=== PATIENT | female | born 1955 | race Caucasian/White ===

== ENCOUNTER 2017-05-07 09:54 | Emergency (ER) | payer MEDICARE ==
[2017-05-07] MEDS ORDERED: LORazepam 2 MG/ML DISP.SYRIN IV ONE (10:08)
[2017-05-07] MEDS ORDERED: MORPHINE SULFATE 2 MG/ML DISP.SYRIN IV ONE ×2 (10:09→11:37)
[2017-05-07 10:19] LABS: Hematocrit 41.4 % (37.0-47.0); Hemoglobin 13.8 gm/dL (12.5-16.0); Mean Cell Volume 83.6 fl (78-100); Mean Corpuscular Hemoglobin 27.9 pg (27-31); Mean Corpuscular Hgb Conc 33.3 g/dl (32-36); Mean Platelet Volume 9.2 fl (6.0-9.5); Neutrophil # 3.7 K/mm3 (1.3-6.0); Neutrophil % 54.7 % (42-75.0); Platelet Count 241 K/mm3 (150-450); Red Blood Count 4.95 M/mm3 (4.2-5.4); Red Cell Distribution Width 14.6 % (11.5-14.0); White Blood Count 6.7 K/mm3 (4.0-10.5)
[2017-05-07] MEDS ORDERED: LORazepam 2 MG/ML DISP.SYRIN ONE (10:21)
[2017-05-07] MEDS ORDERED: ONDANSETRON HCL/PF 2 MG/ML VIAL ONE (10:21)
[2017-05-07] MEDS ORDERED: MORPHINE SULFATE 2 MG/ML DISP.SYRIN ONE ×2 (10:21→11:35)
[2017-05-07] MEDS ORDERED: ONDANSETRON HCL/PF 2 MG/ML VIAL IV ONE (10:22)
[2017-05-07 10:29] LABS: Prothrombin Time (Patient) 10.3 Seconds (9.4-11.4)
[2017-05-07 10:37] LABS: Albumin * 3.1 gm/dl (3.4-5.0); Anion Gap 12.2 mmol/L (6.8-13.8); BUN/Creatinine Ratio 12.8 (9.0-21.6); Bilirubin, Total 0.6 mg/dL (0.0-1.1); Calcium * 8.6 mg/dL (7.9-10.9); Carbon Dioxide 23.8 mmol/L (24-32.6); Total Protein 6.9 gm/dL (6.2-8.2); Troponin I 0.027 ng/ml (0.00-0.10)
[2017-05-07 10:41] LABS: INR 0.99 INR (0.90-1.10); Partial Thrombolplastin Time 21.7 Seconds (24-32)
[2017-05-07] MEDS ORDERED: NITROGLYCERIN 0.4 MG/TAB BTL SL ONE (11:23)
[2017-05-07 13:40] VITALS: BP 170/92
--- NOTE | 2017-05-07 13:49 | ERNOTE ---
Chest Pain/Cardiac HPI Date of Service: 05/07/17 Chief Complaint: Chest Pain Time Seen by Provider: 05/07/17 10:02 Source: patient, family Exam Limitations: no limitations Immunizations: IMMUNIZATION HX Immunizations Up to Date Yes History of Influenza Vaccine No Hx Pneumococcal Vaccination No Allergies/Adverse Reactions: Allergies aspirin Allergy (Severe, Verified 05/07/17 10:10) Shortness of Breath cephalexin monohydrate [From Keflex] Allergy (Verified 05/07/17 10:10) codeine Allergy (Verified 05/07/17 10:10) Penicillins Allergy (Verified 05/07/17 10:10) prednisone Allergy (Verified 05/07/17 10:10) Home Medications: HOME MEDICATIONS Levothyroxine Sodium [Synthroid] 150 mcg PO DAILY@0700 #30 tablet 04/13/16 [ Last Taken Unknown] LORazepam [Ativan] 1 mg PO TID PRN #20 tab 09/01/16 [Last Taken Unknown] HYDROcodone/ACETAMINOPHEN [[place] 5-325] 1 tab PO Q4H PRN #40 tab 05/07/17 [Last Taken Unknown] Metoprolol Succinate 25 mg PO HS 05/07/17 [Last Taken Unknown] Narrative: patient had acute onset of sharp chest pain with radiation into left shoulder, recent episode of pericarditis Timing: constant, getting worse Severity/Quality: severe, sharp, stabbing Location: substernal, shoulder Chest Pain Radiation: shoulders Activities at Onset: none Modifying Factors - Improves: Present: nothing Modifying Factors - Worsens: Present: nothing Nitro Today/Relief: no nitro taken today Associated Symptoms: Present: denies symptoms Prior Chest Pain/Cardiac Workup: Reports: prior chest pain Prior Treatment: Reports: recently seen, treated by physician, recently hospitalized Review of Systems - Review of Systems Constitutional: Present: See HPI EYE: Present: no symptoms reported ENT: Present: no symptoms reported Respiratory: Present: no symptoms reported Cardiology: Present: See HPI, chest pain Gastrointestinal/Abdominal: Present: no symptoms reported Genitourinary: Present: no symptoms reported Musculoskeletal: Present: See HPI, other - pain to palpatioin left anterior chest wall Skin: Present: no symptoms reported Neurological: Present: no symptoms reported, seizure, weakness Endocrine: Present: no symptoms reported Hematologic/Lymphatic: Present: no symptoms reported Psych: Present: no symptoms reported All Other Systems: All systems neg except as marked - Patient's Past Medical History Patient History - Medical: Anxiety, GERD, Headache, Hypothyroidism, Renal Disease, Rheumatoid Arthritis, Other Patient History - Cardiac/Respiratory: Hypertension, Pericarditis Patient History - Cancer: No Hx of Cancer Patient History - Surgical Procedures: Back Surgery, Hysterectomy, Other Patient History - Other: None - Family History Family History:: no untoward family reactions to anesthesia, no familial bleeding tendencies, no family history of premature - Family History Mother Family History - Medical: , Renal Disease Family History - Cardiac/Respiratory: No pertinent hx Family History - Cancer: No pertinent family hx Father Family History - Medical: , Other Family History - Cardiac/Respiratory: Myocardial Infarction, Pneumonia - Social History Living Situations: spouse Abuse History: No History of abuse Psych History: No pertinent hx Smoking Status: Never smoker Have you smoked in the past 12 months: No Do you dip or chew tobacco: No Patient requests Smoking Cessation Consult: No Alcohol Use: none Drug Use: none - Immunizations Immunizations Up to Date: Yes Hx Pneumococcal Vaccination: No History of Influenza Vaccine: No Physical Exam - Physical Exam General Appearance: Present: alert, moderate distress Head Exam: Present: normal inspection, no evidence of injury Eye Exam: Normal inspection: bilateral, PERRL: bilateral, EOMI: bilateral Ears, Nose, Throat: Present: normal ENT inspection Neck: Present: normal inspection, nontender Respiratory: Present: no respiratory distress, normal breath sounds, no accessory muscle use, chest nontender, lungs clear Cardiovascular/Chest: Present: no murmur, normal peripheral pulses Peripheral Pulses: N=norm/S=strong/W=weak/B=bound/A=absent: Carotid (R): Normal , Carotid (L): Normal, Radial (R): Normal, Radial (L): Normal, Femoral (R): Normal, Femoral (L): Normal, Dorsalis-pedis (R): Normal, Dorsalis-pedis (L): Normal Gastrointestinal/Abdominal: Present: normal bowel sounds, nontender, nondistended, soft, no organomegaly Back Exam: Present: normal inspection, normal range of motion, no CVA tenderness , no vertebral tenderness Extremity Exam: Present: normal inspection, non-tender, normal range of motion, no edema Neurological Exam: Present: alert, oriented, normal mood/affect, no motor/ sensory deficits DTR: N=norm/NB=norm/brisk/A=abs/DD=dull/dimin/HC=hyperactive: Bicep (R): Normal , Bicep (L): Normal, Tricep (R): Normal, Tricep (L): Normal, Knee (R): Normal, Knee (L): Normal, Ankle (R): Normal, Ankle (L): Normal Skin Exam: Present: normal color, warm/dry Lymphatic Exam: Present: no adenopathy ED Progress - Results and Orders Patient's Lab Results:: I have reviewed the patient's lab results. - Vital Signs Patient's Vital Signs:: I have reviewed the patient's vital signs. Vital Signs: Vital Signs 05/07/17 05/07/17 05/07/17 10:01 10:03 10:15 Temperature 36.2 C L Pulse Rate 96 98 124 H Respiratory 18 23 H Rate Blood Pressure 159/88 169/76 O2 Sat by Pulse 94 90 Oximetry 05/07/17 05/07/17 05/07/17 10:31 10:40 11:28 Temperature Pulse Rate 103 H 84 79 Respiratory 18 13 16 Rate Blood Pressure 141/84 145/79 153/84 O2 Sat by Pulse 91 91 97 Oximetry 05/07/17 05/07/17 05/07/17 11:31 11:42 12:16 Temperature Pulse Rate 83 78 92 Respiratory 19 16 12 Rate Blood Pressure 137/79 143/95 148/90 O2 Sat by Pulse 97 96 97 Oximetry 05/07/17 05/07/17 12:47 13:12 Temperature Pulse Rate 93 74 Respiratory 14 16 Rate Blood Pressure 148/90 165/91 O2 Sat by Pulse 95 95 Oximetry - EKG EKG: NSR, no ST T wave changes - Progress/Reassessment Chief Complaint: Chest Pain Progress:: Pain free at discharge - Transfer of Care Expected Disposition: Discharge Departure - Departure Clinical Impression: Chest wall pain Condition: Fair Instructions: Chest Wall Pain, [id number] Referrals: Nette Vale CNP [Primary Care Provider] - Prescriptions: HYDROcodone/ACETAMINOPHEN [[place] 5-325] 1 tab PO Q4H PRN #40 tab PRN Reason: Pain
== END 2017-05-07 13:52 | disposition home or self-care (01) ==
LOC: ER 09:54
DX: R07.89 Other chest pain (principal)
CPT/HCPCS: 36415; 71020; 71275; 80053; 83880; 84484; 85025; 85379; 85610; 85730; 93005; 96374; 96375; 99285; J2405

== ENCOUNTER 2017-05-08 12:40 | Emergency (ER) | payer MEDICARE ==
[2017-05-08] MEDS ORDERED: KETOROLAC TROMETHAMINE 30 MG/ML VIAL IV ONE (13:00)
[2017-05-08 13:01] VITALS: BP 145/84
[2017-05-08] MEDS ORDERED: LORazepam 2 MG/ML DISP.SYRIN IV ONE (13:02)
--- NOTE | 2017-05-08 13:04 | ERNOTE ---
Chest Pain/Cardiac HPI Date of Service: 05/08/17 Chief Complaint: Chest Pain Time Seen by Provider: 05/08/17 12:52 Source: patient, RN notes reviewed, past records Exam Limitations: other - Poor historian Immunizations: IMMUNIZATION HX Immunizations Up to Date Yes History of Influenza Vaccine Yes Hx Pneumococcal Vaccination Yes Allergies/Adverse Reactions: Allergies aspirin Allergy (Severe, Verified 05/08/17 12:49) Shortness of Breath cephalexin monohydrate [From Keflex] Allergy (Verified 05/08/17 12:49) codeine Allergy (Verified 05/08/17 12:49) methotrexate Allergy (Verified 05/08/17 12:50) Penicillins Allergy (Verified 05/08/17 12:49) prednisone Allergy (Verified 05/08/17 12:49) leflunomide Adverse Reaction (Verified 05/08/17 12:50) Home Medications: HOME MEDICATIONS Levothyroxine Sodium [Synthroid] 150 mcg PO DAILY@0700 #30 tablet 04/13/16 [ Last Taken Unknown] LORazepam [Ativan] 1 mg PO TID PRN #20 tab 09/01/16 [Last Taken Unknown] Colchicine 0.6 mg PO DAILY 05/08/17 [Last Taken Unknown] Furosemide [Lasix] 20 mg PO DAILY 05/08/17 [Last Taken Unknown] Indomethacin [Indocin] 25 mg PO BID 05/08/17 [Last Taken Unknown] Leflunomide 20 mg PO DAILY 05/08/17 [Last Taken Unknown] Naproxen 500 mg PO BID 05/08/17 [Last Taken Unknown] Potassium Chloride 10 meq PO DAILY 05/08/17 [Last Taken Unknown] Narrative: 61 y/o female brought to the ED by ambulance for chest pain. She was seen for this yesterday. Her work-up, including a CTA chest, was unremarkable for any causative etiology. She has continued to have pain since. She was at her PCP's office this morning when she complained of chest pain and collapsed in a chair. She then became unconscious for about 30 seconds. 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 She is rather displeased that she was brought here and is under the impression that she will be transferred once she can be considered stable. She reports being concerned today because the pain was radiating into her left arm, however on review of her chart from yesterday, it appears as though this was happening then as well. She also reports that she has been taking the pain medication that was prescribed for her yesterday but the prescription is in her hand. She reports that these are the same symptoms that she was having when she was diagnosed with the pericardial effusion. Timing: constant - for over 24 hours Severity/Quality: moderate Location: left chest Chest Pain Radiation: arms - left Nitro Today/Relief: 0.4 mg x 2, mild relief Aspirin Treatment Today: unknown Prior Chest Pain/Cardiac Workup: Reports: prior chest pain. Denies: heart attack Prior Treatment: Reports: recently seen, treated by physician, recently hospitalized Review of Systems - Review of Systems Constitutional: Present: fatigue, malaise. Absent: fever, chills EYE: Present: no symptoms reported ENT: Absent: nose congestion, sore throat Respiratory: Absent: shortness of breath, cough, wheezing Cardiology: Present: chest pain. Absent: palpitations, edema Gastrointestinal/Abdominal: Present: nausea. Absent: vomiting, abdominal pain Genitourinary: Present: no symptoms reported Musculoskeletal: Present: muscle pain, joint pain Skin: Absent: rash, lesions Neurological: Absent: headache, dizziness/light-headedness Endocrine: Present: no symptoms reported Hematologic/Lymphatic: Absent: easy bruising, easy bleeding Psych: Present: anxiety - Patient's Past Medical History Patient History - Medical: Anxiety, GERD, Headache, Hypothyroidism, Renal Disease, Rheumatoid Arthritis, Other Patient History - Cardiac/Respiratory: Hypertension, Pericarditis Patient History - Cancer: No Hx of Cancer Patient History - Surgical Procedures: Back Surgery, Hysterectomy, Other Patient History - Other: None LMP (females 10-50): Menopausal - Family History Mother Family History - Medical: , Renal Disease Family History - Cardiac/Respiratory: No pertinent hx Family History - Cancer: No pertinent family hx Father Family History - Medical: , Other Family History - Cardiac/Respiratory: Myocardial Infarction, Pneumonia - Social History Living Situations: home Abuse History: No History of abuse Psych History: No pertinent hx Smoking Status: Never smoker Alcohol Use: none Drug Use: none - Immunizations Immunizations Up to Date: Yes Hx Pneumococcal Vaccination: Yes History of Influenza Vaccine: Yes Physical Exam - Physical Exam General Appearance: Present: alert, mild distress, anxious, obese Head Exam: Present: normal inspection Eye Exam: Normal inspection: bilateral Neck: Present: normal inspection, nontender, supple Respiratory: Present: no respiratory distress, normal breath sounds, no accessory muscle use, lungs clear, chest tenderness - Left chest Cardiovascular/Chest: Present: no murmur, normal peripheral pulses, tachycardia Gastrointestinal/Abdominal: Present: nontender, nondistended, soft Extremity Exam: Present: normal inspection, no edema Neurological Exam: Present: alert, oriented, no motor/sensory deficits. Absent : normal mood/affect Skin Exam: Present: normal color, warm/dry Lymphatic Exam: Present: no adenopathy ED Progress - Results and Orders Patient's Lab Results:: I have reviewed the patient's lab results. - Vital Signs Patient's Vital Signs:: I have reviewed the patient's vital signs. Vital Signs: Vital Signs 05/08/17 05/08/17 12:42 12:55 Temperature 36.7 C 36.7 C Pulse Rate 114 H 118 H Respiratory 16 14 Rate Blood Pressure 134/98 145/84 O2 Sat by Pulse 96 97 Oximetry - EKG EKG: unchanged from - 05/07/2017, other - Sinus tachycardia EKG read: Reviewed by me - Progress/Reassessment Chief Complaint: Chest Pain Progress:: Unchanged Plan - Plan Plan: Toradol and Ativan were initially given. Patient reports that her pain did not improve, but she did appear more calm. Her work-up today is again negative for any acute cardiac findings. Her EKG shows no significant change and her troponin is negative. Her chest pain is reproducible with palpation and with coughing/moving/ breathing. She remains convinced that her pain is again d/t a pericardial effusion. She has been in stable condition throghout her stay. Discussed with patient the lack of findings indicative of her having an acute cardiac event but she remains adamant that something is wrong and wants to be transferred to [facility] where she received her care when she had the pericardial effusion in January. Transfer arrangements made. Patient accepted for transfer through the ED at [facility] by Dr. Carver, ER triage. To go by ambulance as she is afraid to go by private vehicle in case her symptoms worsen again. Departure - Departure Clinical Impression: Syncope and collapse Chest pain Qualifiers: Chest pain type: unspecified Qualified Code(s): R07.9 - Chest pain, unspecified Disposition: [facility] Condition: Stable
[2017-05-08] MEDS ORDERED: KETOROLAC TROMETHAMINE 30 MG/ML VIAL ONE (13:10)
[2017-05-08] MEDS ORDERED: LORazepam 2 MG/ML DISP.SYRIN ONE (13:11)
[2017-05-08 13:16] LABS: Hematocrit 44.2 % (37.0-47.0); Hemoglobin 14.4 gm/dL (12.5-16.0); Mean Cell Volume 84.7 fl (78-100); Mean Corpuscular Hemoglobin 27.6 pg (27-31); Mean Corpuscular Hgb Conc 32.6 g/dl (32-36); Mean Platelet Volume 9.4 fl (6.0-9.5); Neutrophil # 3.6 K/mm3 (1.3-6.0); Neutrophil % 54.8 % (42-75.0); Platelet Count 222 K/mm3 (150-450); Red Blood Count 5.22 M/mm3 (4.2-5.4); Red Cell Distribution Width 14.8 % (11.5-14.0); White Blood Count 6.6 K/mm3 (4.0-10.5)
[2017-05-08 13:45] LABS: Urine Bilirubin Negative (NEGATIVE); Urine Blood Negative /ul (NEGATIVE); Urine Ketone Negative (NEGATIVE); Urine Nitrite Negative (NEGATIVE); Urine Protein Negative (NEGATIVE); Urine Specific Gravity <=1.005 SP.GR. (1.005-1.010); Urine Urobilinogen Normal (NORMAL); Urine pH 6.5 pH (5.0-7.0)
[2017-05-08 13:49] LABS: Urine Appearance Slightly Cloudy; Urine Color Yellow
[2017-05-08 13:52] LABS: Urine Bacteria 1+; Urine RBC None Seen /hpf (0-5); Urine WBC 0-5 /hpf (0-5)
[2017-05-08 13:54] LABS: ALT 39 U/L (19-67); AST 28 U/L (0-48); Alkaline Phosphatase * 149 U/L (50-170); Anion Gap 13.8 mmol/L (6.8-13.8); BUN/Creatinine Ratio 11.4 (9.0-21.6); Bilirubin, Total 0.6 mg/dL (0.0-1.1); Blood Urea Nitrogen 8 mg/dL (3-23); Ca. Corrected For Albumin 9.4 mg/dL (8.4-10.2); Calcium * 8.9 mg/dL (7.9-10.9); Carbon Dioxide 24.4 mmol/L (24-32.6); Chloride 104 mmol/L (97-106); Glucose * 124 mg/dL (70-110); Potassium 4.2 mmol/L (3.4-4.6); Sodium 138 mmol/L (132-142); TSH * 0.083 uIU/mL (0.358-3.74); Total Protein 7.1 gm/dL (6.2-8.2); Troponin I Less than 0.017 ng/ml (0.00-0.10)
[2017-05-08] MEDS ORDERED: ONDANSETRON HCL/PF 2 MG/ML VIAL IV ONE (14:52)
[2017-05-08] MEDS ORDERED: HYDROmorphone HCL 1 MG/ML DISP.SYRIN IV ONE (14:52)
[2017-05-08] MEDS ORDERED: ONDANSETRON HCL/PF 2 MG/ML VIAL ONE (15:04)
[2017-05-08] MEDS ORDERED: HYDROmorphone HCL 1 MG/ML DISP.SYRIN ONE (15:04)
== END 2017-05-08 15:20 | disposition short-term general hospital (02) ==
LOC: ER 12:40
DX: R07.9 Chest pain, unspecified (principal); R55 Syncope and collapse; R53.83 Other fatigue
CPT/HCPCS: 36415; 80053; 81001; 84443; 84484; 85025; 87077; 87086; 87186; 93005; 96374; 96375; 99284; J2405

== ENCOUNTER 2017-05-10 11:24 | Observation (INO) | payer MEDICARE ==
[2017-05-10] MEDS ORDERED: ONDANSETRON HCL/PF 2 MG/ML VIAL ONE (11:43)
[2017-05-10] MEDS ORDERED: ONDANSETRON HCL/PF 2 MG/ML VIAL IV ONE (11:49)
[2017-05-10 12:11] LABS: Hemoglobin 13.9 gm/dL (12.5-16.0); Mean Cell Volume 83.2 fl (78-100); Mean Corpuscular Hemoglobin 27.5 pg (27-31); Mean Corpuscular Hgb Conc 33.1 g/dl (32-36); Mean Platelet Volume 9.4 fl (6.0-9.5); Neutrophil # 3.3 K/mm3 (1.3-6.0); Neutrophil % 57.2 % (42-75.0); Platelet Count 228 K/mm3 (150-450); Red Blood Count 5.05 M/mm3 (4.2-5.4); Red Cell Distribution Width 14.6 % (11.5-14.0); White Blood Count 5.7 K/mm3 (4.0-10.5)
[2017-05-10 12:29] LABS: ALT 40 U/L (19-67); AST 27 U/L (0-48); Albumin * 3.2 gm/dl (3.4-5.0); Alkaline Phosphatase * 137 U/L (50-170); Anion Gap 15.6 mmol/L (6.8-13.8); Bilirubin, Total 0.5 mg/dL (0.0-1.1); Blood Urea Nitrogen 12 mg/dL (3-23); Calcium * 8.7 mg/dL (7.9-10.9); Carbon Dioxide 24.2 mmol/L (24-32.6); Chloride 105 mmol/L (97-106); Glucose * 158 mg/dL (70-110); Potassium 3.8 mmol/L (3.4-4.6); Sodium 141 mmol/L (132-142); Total Protein 7.1 gm/dL (6.2-8.2); Troponin I Less than 0.017 ng/ml (0.00-0.10)
--- NOTE | 2017-05-10 12:37 | ERNOTE ---
Trauma/Assault HPI - General Stated Complaint: SICK Time Seen by Provider: 05/10/17 11:34 Source: patient, family, EMS - Immun/Allergies/Home Medications Immunizations: IMMUNIZATION HX Immunizations Up to Date Yes History of Influenza Vaccine Yes Hx Pneumococcal Vaccination No Allergies/Adverse Reactions: Allergies aspirin Allergy (Severe, Verified 05/10/17 11:32) Shortness of Breath cephalexin monohydrate [From Keflex] Allergy (Verified 05/10/17 11:32) codeine Allergy (Verified 05/10/17 11:32) methotrexate Allergy (Verified 05/10/17 11:32) Penicillins Allergy (Verified 05/10/17 11:32) prednisone Allergy (Verified 05/10/17 11:32) leflunomide Adverse Reaction (Verified 05/10/17 11:32) Home Medications: HOME MEDICATIONS Levothyroxine Sodium [Synthroid] 150 mcg PO DAILY@0700 #30 tablet 04/13/16 [ Last Taken Unknown] LORazepam [Ativan] 1 mg PO TID PRN #20 tab 09/01/16 [Last Taken Unknown] Colchicine 0.6 mg PO DAILY 05/08/17 [Last Taken Unknown] Furosemide [Lasix] 20 mg PO DAILY 05/08/17 [Last Taken Unknown] Indomethacin [Indocin] 25 mg PO BID 05/08/17 [Last Taken Unknown] Leflunomide 20 mg PO DAILY 05/08/17 [Last Taken Unknown] Naproxen 500 mg PO BID 05/08/17 [Last Taken Unknown] Potassium Chloride 10 meq PO DAILY 05/08/17 [Last Taken Unknown] - History of Present Illness Narrative: Patient presents with a recurrent syncopal episode. Patient was seen here yesterday for something similar was evaluated and sent to [facility] where she was told there that this was not cardiac in nature there was a costochondritis and sent her home. They however did not address the syncope they will be more concerned with was of the chest pain she was having was cardiac or not. Patient states that this time she fell and hit her head, does not remember exactly what happened. Location Occurred: Reports: home Pain Location: Reports: head Method of Injury: Reports: other - syncope Loss of Consciousness: Reports: brief (seconds) Associated Symptoms - Trauma: Reports: nausea, vomiting Review of Systems - Review of Systems Constitutional: Present: See HPI EYE: Present: no symptoms reported ENT: Present: no symptoms reported Respiratory: Present: no symptoms reported Cardiology: Present: no symptoms reported Gastrointestinal/Abdominal: Present: nausea, vomiting Genitourinary: Present: no symptoms reported Musculoskeletal: Present: no symptoms reported Skin: Present: no symptoms reported Neurological: Present: See HPI, headache Endocrine: Present: no symptoms reported Hematologic/Lymphatic: Present: no symptoms reported Psych: Present: no symptoms reported - Patient's Past Medical History Patient History - Medical: Anxiety, GERD, Headache, Hypothyroidism, Renal Disease, Rheumatoid Arthritis, Other Patient History - Cardiac/Respiratory: Hypertension, Pericarditis Patient History - Cancer: No Hx of Cancer Patient History - Surgical Procedures: Back Surgery, Hysterectomy, Other Patient History - Other: None - Family History Mother Family History - Medical: , Renal Disease Family History - Cardiac/Respiratory: No pertinent hx Family History - Cancer: No pertinent family hx Father Family History - Medical: , Other Family History - Cardiac/Respiratory: Myocardial Infarction, Pneumonia - Social History Living Situations: spouse Abuse History: No History of abuse Psych History: No pertinent hx Smoking Status: Former smoker Have you smoked in the past 12 months: No Do you dip or chew tobacco: No Alcohol Use: none Drug Use: none - Immunizations Immunizations Up to Date: Yes Hx Pneumococcal Vaccination: No History of Influenza Vaccine: Yes Physical Exam - Physical Exam General Appearance: Present: wd/wn, alert, mild distress Head Exam: Present: other - head contusion present L parietal area Eye Exam: Normal inspection: bilateral, PERRL: bilateral Ears, Nose, Throat: Present: normal ENT inspection, H, normal pharynx Neck: Present: normal inspection, nontender Respiratory: Present: no respiratory distress, normal breath sounds, no accessory muscle use, chest nontender, lungs clear Cardiovascular/Chest: Present: regular rate, rhythm, no murmur, normal peripheral pulses Gastrointestinal/Abdominal: Present: normal bowel sounds, nondistended, soft, no organomegaly, tenderness - epigastric region Rectal Exam: Present: deferred Back Exam: Present: normal inspection, normal range of motion Extremity Exam: Present: normal inspection, non-tender, no edema, normal range of motion Neurological Exam: Present: alert, oriented, normal mood/affect Skin Exam: Present: normal color, warm/dry Lymphatic Exam: Present: no adenopathy ED Progress - Results and Orders Patient's Lab Results:: I have reviewed the patient's lab results. - Vital Signs Patient's Vital Signs:: I have reviewed the patient's vital signs. Vital Signs: Vital Signs 05/10/17 11:25 Temperature 36.6 C Pulse Rate 103 H Respiratory 20 Rate Blood Pressure 174/85 O2 Sat by Pulse 93 Oximetry - EKG EKG: NSR EKG read: Interp. by me - X-Ray X-Ray #1 X-Ray: abdomen Interpretation: Reviewed by me X-Ray #2 X-Ray: shoulder Interpretation: Reviewed by me - CT/Ultrasound CT/Ultrasound Narrative: CT results were reviewed by me - Progress/Reassessment Chief Complaint: Fall Plan - Plan Plan: Unclear etiology for the multiple syncopal events. While she has not had any discernible cardiac dysrhythmia while she's been here it is possible that this is at the source of syncope. Patient will be admitted to an overhead bed on a monitor and we will arrange for Holter monitor if nothing reveals itself during her hospital stay. Dr. Santamaria agreed to admit the patient Departure Clinical Impression: Syncope and collapse - Departure Disposition: [facility] Condition: Fair
[2017-05-10 13:09] LABS: Urine Bilirubin Negative (NEGATIVE); Urine Blood Negative /ul (NEGATIVE); Urine Ketone Negative (NEGATIVE); Urine Nitrite Negative (NEGATIVE); Urine Protein Negative (NEGATIVE); Urine Specific Gravity <=1.005 SP.GR. (1.005-1.010); Urine Urobilinogen Normal (NORMAL)
[2017-05-10 13:13] LABS: Urine Appearance Clear; Urine Bacteria None Seen; Urine Color Yellow; Urine RBC None Seen /hpf (0-5); Urine WBC None Seen /hpf (0-5)
[2017-05-10] MEDS ORDERED: ACETAMINOPHEN 325 MG TABLET PO PRN (17:44)
[2017-05-10 18:14] LABS: T4 Free * 1.48 ng/dL (0.76-1.46); TSH * 0.112 uIU/mL (0.358-3.74)
[2017-05-10] MEDS ORDERED: LEVOTHYROXINE SODIUM 150 MCG TABLET PO STA (18:35)
[2017-05-10] MEDS: NAPROXEN 500 MG TABLET PO SCH ×2 (18:37→20:17)
[2017-05-10] MEDS ORDERED: LORazepam 2 MG/ML DISP.SYRIN IV STA (18:45)
[2017-05-10] MEDS ORDERED: PROMETHAZINE HCL 5 MG in DEXTROSE 5 % IN WATER 50 ML IV STA ×2 (18:45)
--- NOTE | 2017-05-10 18:45 | HP ---
Chief Complaint - Chief Complaint Date of Service: 05/10/17 Time of Service: 18:36 Chief Complaint: Syncope History of Present Illness: Had an egg and coffee this morning for breakfast. [place] as if she couldn't get her breath and threw up. Went outside to get some air, had another cup of coffee, threw up again. Came back into the house, drank some water, started to throw up again, couldn't get her breath, felt light headed and hot with fuzzy vision, called to her for help, and remembers hitting her head as she fell. Her found her passed out on the floor. She was brought to the [facility] ER. While sitting up in the ER, they were drawing her blood, and when the needle went in, while sitting up, she passed out again. 3 months ago, she was found to have "fluid around her heart" due to a rhueumatoid arthritis medication , which has since been stopped. The fluid was drawn off. She also passed out yesterday and had sharp chest pain. She came to the [facility] ER for this, also yesterday, and was sent the [facility] by ambulance. She says there she was told she had costochondritis. She apparently had an echo there yesterday, and was told there was no more fluid. She fell and hit her head in September of 2012 and has had headaches ever since. 2 days ago in her health care provider's office she had another episode of syncope. In March of 2016 she was in [facility] overnight with virtually identical symptoms, although at that time she also had a witness one minute convulsion in the ER. Prior to that admission, there was one other historical episode of syncope after having received three injections at a time, one of which was a corticosteroid. Since March of 2016, she has had near syncope off and on, especially with activity, such as walking too far. If she stops and rests, this will get better. In the last two weeks, this problem has worsened. - Patient's Past Medical History Patient History - Medical: Anxiety, Headache, Hypothyroidism, Renal Disease, Rheumatoid Arthritis Patient History - Cardiac/Respiratory: Hypertension, Pericarditis Patient History - Cancer: No Hx of Cancer Patient History - Surgical Procedures: Back Surgery, Hysterectomy, Other, Hernia Repair Patient History - Other: None - Family History Mother Family History - Medical: , Renal Disease Family History - Cardiac/Respiratory: No pertinent hx Family History - Cancer: No pertinent family hx Father Family History - Medical: , Other Family History - Cardiac/Respiratory: Pneumonia Family History - Cancer: No pertinent family hx - Social History Living Situations: spouse Abuse History: No History of abuse Psych History: No pertinent hx Smoking Status: Former smoker Have you smoked in the past 12 months: No Do you dip or chew tobacco: No Smoking Stop Date: 05/10/97 Patient requests Smoking Cessation Consult: No Initiate information on Smoking Cessation: No Alcohol Use: none Drug Use: none - Immunizations Immunizations Up to Date: Yes Hx Pneumococcal Vaccination: No History of Influenza Vaccine: Yes Review Of Systems (GEN) - Review of Systems Generalized/Overall Review: Present: No Symptoms Reported EENTM: Present: No Symptoms Reported Respiratory: Present: Shortness of Breath Cardiac: Present: Chest Pain, Syncope Abdominal: Present: Vomiting Genitourinary: Present: No Symptoms Reported Musculoskeletal: Present: Joint Pain Neurological: Present: Headache, Anxiety Skin: Present: No Symptoms Reported Endocrine: Present: No Symptoms Reported Misc: All systems neg except as marked Allergies/Adverse Reactions: Allergies Allergy/AdvReac Type Severity Reaction Status Date / Time aspirin Allergy Severe Shortness Verified 05/10/17 14:20 of Breath cephalexin monohydrate Allergy Verified 05/10/17 14:20 [From Keflex] codeine Allergy Verified 05/10/17 14:20 methotrexate Allergy Verified 05/10/17 14:20 Penicillins Allergy Verified 05/10/17 14:20 prednisone Allergy Verified 05/10/17 14:20 leflunomide AdvReac Verified 05/10/17 14:20 Home Medications: HOME MEDICATIONS Levothyroxine Sodium [Synthroid] 150 mcg PO DAILY@0700 #30 tablet 04/13/16 [ Last Taken 05/07/17 07:00] Naproxen 500 mg PO BID 05/08/17 [Last Taken 05/09/17 20:00] Exam - Exam Vital Signs: Vital Signs - Last Taken Selected Entries 04/12/16 04/12/16 05/10/17 19:12 19:42 11:25 Temperature 36.4 C L 36.6 C Temperature Oral Temporal Artery Source Scan Pulse Rate 69 103 H Pulse Rhythm Regular Pulse Strength Normal Respiratory 18 Rate Respiratory Normal Depth Respiratory Normal Effort Non-Labored Respiratory Pattern Blood Pressure 145/84 174/85 Blood Pressure Supine Sitting Position O2 Sat by Pulse 97 Oximetry Oxygen Delivery Room Air Method 05/10/17 13:49 Temperature 36.2 C L Temperature Temporal Artery Source Scan Pulse Rate 93 Pulse Rhythm Regular Pulse Strength Normal Respiratory 18 Rate Respiratory Normal Depth Respiratory Normal Effort Respiratory Normal Pattern Blood Pressure 174/78 Blood Pressure Sitting Position O2 Sat by Pulse 98 Oximetry Oxygen Delivery Room Air Method Constitutional: Present: Alert, Oriented x3, Cooperative, Well developed, No distress, Obese ENT Exam: Present: normal ENT inspection, hearing grossly normal Eye Exam: bilateral eye: normal inspection, PERRL, EOMI Neck: Present: normal inspection Back Exam: Present: normal inspection Respiratory: Present: normal breath sounds, no respiratory distress Cardiovascular/Chest: Present: regular rate, rhythm, no murmur, chest tender Abdomen: Present: Normal bowel sounds, soft, nontender, nondistended, no rebound tenderness, no hepatospenomegaly, no masses, obese Extremity: Present: normal inspection, no pedal edema Skin Exam: Present: normal color, warm/dry, no cyanosis Neurologic: Present: alert, oriented x 3, other - anxious Appearance: Present: appropriate appearance, appropriate insight, neat, no memory impairment Eye contact: Present: cooperative, good eye contact, normal speech Thoughts: Present: normal thought pattern Diagnostic Studies: Laboratory Results WBC 5.7 K/mm3 (4.0-10.5) 05/10/17 12:00 RBC 5.05 M/mm3 (4.2-5.4) 05/10/17 12:00 Hgb 13.9 gm/dL (12.5-16.0) 05/10/17 12:00 Hct 42.0 % (37.0-47.0) 05/10/17 12:00 MCV 83.2 fl (78-100) 05/10/17 12:00 MCH 27.5 pg (27-31) 05/10/17 12:00 MCHC 33.1 g/dl (32-36) 05/10/17 12:00 RDW 14.6 % (11.5-14.0) H 05/10/17 12:00 Plt Count 228 K/mm3 (150-450) 05/10/17 12:00 MPV 9.4 fl (6.0-9.5) 05/10/17 12:00 Immature Gran % (Auto) 0.50 % (0.001-0.429) H 05/10/17 12:00 Immature Gran # (Auto) 0.03 K/mm3 (0.000-0.0310) 05/10/17 12:00 Neutrophils % 57.2 % (42-75.0) 05/10/17 12:00 Lymphocytes % 26.9 % (20-51) 05/10/17 12:00 Monocytes % 11.4 % (0.0-9) H 05/10/17 12:00 Eosinophils % 3.3 % (0.0-3.0) H 05/10/17 12:00 Basophils % 0.7 % (0.0-1.0) 05/10/17 12:00 Nucleated RBC % 0.0 k/mm3 (0-1) 05/10/17 12:00 Neutrophils # 3.3 K/mm3 (1.3-6.0) 05/10/17 12:00 Lymphocytes # 1.5 k/mm3 (1.5-3.5) 05/10/17 12:00 Monocytes # 0.7 k/mm3 (0.0-1.0) 05/10/17 12:00 Eosinophils # 0.2 k/mm3 (0.0-0.7) 05/10/17 12:00 Absolute Basophils 0.0 k/mm3 (0.0-0.1) 05/10/17 12:00 Sodium 141 mmol/L (132-142) 05/10/17 12:00 Plasma Sodium 142 mmol/L (130-142) 05/10/17 12:00 Potassium 3.8 mmol/L (3.4-4.6) 05/10/17 12:00 Chloride 105 mmol/L (97-106) 05/10/17 12:00 Carbon Dioxide 24.2 mmol/L (24-32.6) 05/10/17 12:00 Anion Gap 15.6 mmol/L (6.8-13.8) H 05/10/17 12:00 BUN 12 mg/dL (3-23) 05/10/17 12:00 Creatinine 0.63 mg/dL (0.4-1.4) 05/10/17 12:00 Est GFR (Non-Af Amer) 102 mL/min (60-130) 05/10/17 12:00 BUN/Creatinine Ratio 19.0 (9.0-21.6) 05/10/17 12:00 Random Glucose 158 mg/dL (70-110) H 05/10/17 12:00 Calcium 8.7 mg/dL (7.9-10.9) 05/10/17 12:00 Calcium Adj for Albumin 9.0 mg/dL (8.4-10.2) 05/10/17 12:00 Magnesium 2.0 mg/dL (1.2-2.8) 05/10/17 12:00 Total Bilirubin 0.5 mg/dL (0.0-1.1) 05/10/17 12:00 AST 27 U/L (0-48) 05/10/17 12:00 ALT 40 U/L (19-67) 05/10/17 12:00 Alkaline Phosphatase 137 U/L (50-170) 05/10/17 12:00 Troponin I Less than 0.017 ng/ml (0.00-0.10) 05/10/17 12:00 Total Protein 7.1 gm/dL (6.2-8.2) 05/10/17 12:00 Albumin 3.2 gm/dl (3.4-5.0) L 05/10/17 12:00 TSH 0.112 uIU/mL (0.358-3.74) L 05/10/17 12:00 Free T4 1.48 ng/dL (0.76-1.46) H 05/10/17 12:00 Urine Color Yellow 05/10/17 12:59 Urine Appearance Clear 05/10/17 12:59 Urine pH 6.0 pH (5.0-7.0) 05/10/17 12:59 Ur Specific [place] <=1.005 SP.GR. (1.005-1.010) 05/10/17 12:59 Urine Protein Negative mg/dL (NEGATIVE) 05/10/17 12:59 Urine Glucose (UA) Negative mg/dL (NEGATIVE) 05/10/17 12:59 Urine Ketones Negative mg/dL (NEGATIVE) 05/10/17 12:59 Urine Blood Negative /ul (NEGATIVE) 05/10/17 12:59 Urine Nitrate Negative (NEGATIVE) 05/10/17 12:59 Urine Bilirubin Negative mg/dl (NEGATIVE) 05/10/17 12:59 Urine Urobilinogen Normal EU/dl (NORMAL) 05/10/17 12:59 Ur Leukocyte Esterase Negative /ul (NEGATIVE) 05/10/17 12:59 Urine RBC None seen /hpf (0-5) 05/10/17 12:59 Urine WBC None seen /hpf (0-5) 05/10/17 12:59 Ur Epithelial Cells None seen /hpf (0-5) 05/10/17 12:59 Urine Bacteria None seen (NONE) 05/10/17 12:59 Urine Culture Comments No culture indicated 05/10/17 12:59 Assessment/Plan - Narrative Narrative: Monitor. Holter monitor tomorrow. [place] records tomorrow. Compression stockings thigh high. Estimate stay one midnight. - Assessment/Plan (1) Costochondritis Problem: Chronic (2) Pericarditis Problem: Resolved Qualifiers: Pericarditis type: other type Chronicity: acute Qualified Code(s): I30.8 - Other forms of acute pericarditis (3) Rheumatoid arthritis Problem: Chronic Qualifiers: Rheumatoid arthritis location: multiple sites Rheumatoid factor presence: unspecified presence Qualified Code(s): M06.9 - Rheumatoid arthritis, unspecified (4) Hypothyroidism Problem: Chronic Qualifiers: Hypothyroidism type: acquired Qualified Code(s): E03.9 - Hypothyroidism, unspecified (5) Hypertension Problem: Chronic Qualifiers: Hypertension type: essential hypertension Qualified Code(s): I10 - Essential (primary) hypertension (6) Anxiety Problem: Chronic (7) Vasovagal syncope Problem: Acute (8) Syncope and collapse Problem: Acute (9) GERD (gastroesophageal reflux disease) Problem: Chronic Qualifiers: Esophagitis presence: without esophagitis Qualified Code(s): K21.9 - Gastro -esophageal reflux disease without esophagitis (10) Post-traumatic headache, not intractable Problem: Chronic Qualifiers: Headache chronicity pattern: chronic headache Qualified Code(s): G44.329 - Chronic post-traumatic headache, not intractable
[2017-05-10] MEDS ORDERED: PROMETHAZINE HCL 5 MG in DEXTROSE 5 % IN WATER 50 ML IV PRN ×2 (18:46)
[2017-05-10] MEDS ORDERED: LORazepam 2 MG/ML DISP.SYRIN IV PRN (18:46)
[2017-05-10] MEDS ORDERED: METOPROLOL SUCCINATE 50 MG TABLET.SA PO ONE (20:15)
[2017-05-10] MEDS ORDERED: LORazepam 2 MG/ML DISP.SYRIN IV ONE (20:49)
[2017-05-10] MEDS ORDERED: METOPROLOL SUCCINATE 25 MG TABLET.SA PO SCH (21:00)
[2017-05-10 21:40] LABS: Cocaine Ur Negative (NEGATIVE); Urine Barbiturate Negative (NEGATIVE); Urine Opiates Negative (NEGATIVE); Urine PCP Negative (NEGATIVE); Urine THC Negative (NEGATIVE)
[2017-05-10 21:43] LABS: Urine Benzodiazepines Positive (NEGATIVE)
[2017-05-11] MEDS ORDERED: LEVOTHYROXINE SODIUM 150 MCG TABLET PO SCH (07:00)
[2017-05-11] MEDS: NAPROXEN 500 MG TABLET PO SCH (08:08)
--- NOTE | 2017-05-11 08:53 | DS ---
(1) Costochondritis Problem: Chronic (2) Pericarditis Problem: Resolved Qualifiers: Pericarditis type: other type Chronicity: acute Qualified Code(s): I30.8 - Other forms of acute pericarditis (3) Rheumatoid arthritis Problem: Chronic Qualifiers: Rheumatoid arthritis location: multiple sites Rheumatoid factor presence: unspecified presence Qualified Code(s): M06.9 - Rheumatoid arthritis, unspecified (4) Hypothyroidism Problem: Chronic Qualifiers: Hypothyroidism type: acquired Qualified Code(s): E03.9 - Hypothyroidism, unspecified (5) Hypertension Problem: Chronic Qualifiers: Hypertension type: essential hypertension Qualified Code(s): I10 - Essential (primary) hypertension (6) Anxiety Problem: Chronic (7) Vasovagal syncope Problem: Acute (8) Syncope and collapse Problem: Acute (9) GERD (gastroesophageal reflux disease) Problem: Chronic Qualifiers: Esophagitis presence: without esophagitis Qualified Code(s): K21.9 - Gastro -esophageal reflux disease without esophagitis (10) Post-traumatic headache, not intractable Problem: Chronic Qualifiers: Headache chronicity pattern: chronic headache Qualified Code(s): G44.329 - Chronic post-traumatic headache, not intractable (11) Insomnia Problem: Chronic Qualifiers: Insomnia type: primary Qualified Code(s): F51.01 - Primary insomnia Description of Stay: Two observed episodes of vasovagal syncope in hospital. One demonstrated episode of hyperventilation syndrome in hospital. Otherwise stable in hospital. Procedures Performed: none Discharge Disposition: Home self care Disposition: Home self-care Condition: Good Discharge Activity: Activity as tolerated Discharge Diet: General/regular food Problem Oriented Discharge Instructions to Patient/Family: Vasovagal Syncope, Adult Additional Patient Instructions (free text): Follow up [facility] end of next week. 48 hour Holter. Thigh high compression hose unless sleeping or bathing. Lie down before you pass out. When you feel light headed slow your breathing, relax and rest. Lie down. Prescriptions (Any new or edited meds): Sigvaris Compression Hose 1 packet TP DAILY #1 Levothyroxine Sodium [Levo-T] 125 mcg PO DAILY #30 tablet Zolpidem Tartrate [Ambien] 10 mg PO HS PRN #30 tab PRN Reason: Insomnia Complete Home Medications List: Complete Home Medication List: Naproxen 500 mg PO BID 05/08/17 Sigvaris Compression Hose 1 packet TP DAILY #1 05/11/17 Acetaminophen [Tylenol] 650 mg PO QID PRN tablet 05/11/17 Levothyroxine Sodium [Levo-T] 125 mcg PO DAILY #30 tablet 05/11/17 Metoprolol Succinate [Toprol Xl] 25 mg PO HS tablet.sa 05/11/17 Zolpidem Tartrate [Ambien] 10 mg PO HS PRN #30 tab 05/11/17
[2017-05-11 10:42] VITALS: BP 155/75
== END 2017-05-11 10:53 | disposition home or self-care (01) ==
LOC: ER 11:24 → MS 13:48
PROVIDERS: ADMIT Internal Medicine; ATTEND Allergy & Immunology
DX: R55 Syncope and collapse (principal); M94.0 Chondrocostal junction syndrome [Tietze]; I31.9 Disease of pericardium, unspecified; M06.9 Rheumatoid arthritis, unspecified; E03.9 Hypothyroidism, unspecified; I10 Essential (primary) hypertension; F41.9 Anxiety disorder, unspecified; K21.9 Gastro-esophageal reflux disease without esophagitis; G44.329 Chronic post-traumatic headache, not intractable; F51.01 Primary insomnia
CPT/HCPCS: 36415; 70450; 73030; 74020; 80053; 80307; 81001; 83735; 84439; 84443; 84484; 85025; 93005; 96365; 96374; 96375; 96376; 99285; G0378; J2405

== ENCOUNTER 2018-04-05 22:15 | Observation (INO) ==
[2018-04-05] MEDS ORDERED: LORazepam 2 MG/ML DISP.SYRIN ONE (22:21)
--- NOTE | 2018-04-05 22:36 | ERNOTE ---
Neuro HPI ER Record Presenting Symptoms: other - seizure today Time Seen by Provider: 04/05/18 22:29 Source: patient, family Exam Limitations: no limitations Immunizations: IMMUNIZATION HX Immunizations Up to Date unknown History of Influenza Vaccine Yes Hx Pneumococcal Vaccination No Allergies/Adverse Reactions: Allergies Allergy/AdvReac Type Severity Reaction Status Date / Time aspirin Allergy Severe Shortness Verified 05/10/17 14:20 of Breath cephalexin monohydrate Allergy Verified 05/10/17 14:20 [From Keflex] codeine Allergy Verified 05/10/17 14:20 methotrexate Allergy Verified 05/10/17 14:20 Penicillins Allergy Verified 05/10/17 14:20 prednisone Allergy Verified 05/10/17 14:20 leflunomide AdvReac Verified 05/10/17 14:20 Home Medications: HOME MEDICATIONS ALPRAZolam [Xanax] 1 mg PO HS 04/05/18 [Last Taken Unknown] Furosemide 20 mg PO DAILY 04/05/18 [Last Taken Unknown] Levothyroxine Sodium [Synthroid] 150 mcg PO DAILY 04/05/18 [Last Taken Unknown] Metoprolol Succinate [Toprol Xl] 25 mg PO DAILY 04/05/18 [Last Taken Unknown] Nitroglycerin [Nitrostat] 0.4 mg SL Q5MIN PRN 04/05/18 [Last Taken Unknown] - History of Present Illness Narrative: Pt brought in by EMS with history of seizure like activity at the bar. Friends report that she initially had seizure like activity and was unable to even give her name or birthdate. EMS report that she had chest pain when they arrived at the scene and was somewhat confused. Pt had seizure like activity upon arrival in the ED but was immediately awake and alert and answering questions within 30- 60 seconds after movement stopped. Onset: sudden onset Severity: moderate - Character of Deficits Associated Symptoms: Reports: chest pain Review of Systems - Review of Systems Constitutional: Absent: recent illness, fever EYE: Absent: vision changes Respiratory: Absent: shortness of breath Cardiology: Present: chest pain, palpitations - common for her to have tachycardia Gastrointestinal/Abdominal: Present: no symptoms reported Neurological: Present: See HPI, dizziness/light-headedness, tremors. Absent: headache Endocrine: Absent: excessive sweating, flushing Medical History (Last Updated 04/05/18 @ 22:45 by Marzena Lopez RN) Anxiety Hypothyroidism Osteoarthritis Rheumatoid arteritis Seizure Tear meniscus knee Surgical History: Surgical History (Last Updated 04/05/18 @ 22:47 by Marzena Lopez RN) Hx of hysterectomy (Acute) Hx of heart artery stent Social History: Preferred Language Thai Smoking Status Never smoker Abuse History No History of abuse Psych History No pertinent hx Alcohol Use none Drug Use none Physical Exam - Physical Exam General Appearance: Present: wd/wn, alert, no apparent distress Head Exam: Present: normal inspection, no evidence of injury Ears, Nose, Throat: Present: normal ENT inspection - no oral trauma Neck: Present: normal inspection, nontender, supple Respiratory: Present: no respiratory distress, normal breath sounds, no accessory muscle use, lungs clear Cardiovascular/Chest: Present: regular rate, rhythm, no murmur, normal peripheral pulses Gastrointestinal/Abdominal: Present: normal bowel sounds, nontender, nondistended, soft, no organomegaly Extremity Exam: Present: normal inspection, non-tender, normal range of motion, no edema Neurological Exam: Present: alert, oriented, normal mood/affect, no motor/ sensory deficits Skin Exam: Present: normal color, warm/dry Lymphatic Exam: Present: no adenopathy [place] Coma Scale - Assess Eye Opening: Spontaneous Motor: Obeys Commands Verbal: Oriented - Total Coma Scale Total: 15 ED Progress - Results and Orders Patient's Lab Results:: I have reviewed the patient's lab results. Results and Orders: Laboratory Tests 04/05/18 04/05/18 04/05/18 22:57 22:57 23:09 WBC 6.3 Hct 40.1 MCV 85.1 Plt Count 254 Sodium 136 Potassium 3.5 BUN 13 Creatinine 0.77 Random Glucose 136 H AST 22 ALT 26 Troponin I Less than 0.017 Urine Color Yellow Urine Appearance Slightly cloudy Urine pH 6.0 Ur Specific [place] <=1.005 Urine Protein Negative Urine Glucose (UA) Negative Urine Ketones Negative Urine Blood Negative Urine Nitrate Negative Urine Bilirubin Negative Urine Urobilinogen Normal Ur Leukocyte Esterase 75 H Urine RBC None seen Urine WBC 0-5 Ur Epithelial Cells Trace Amorphous Sediment Moderate - 2+ H Urine Bacteria 1+ H Urine Culture Comments Culture to follow Urine Opiates Screen Barbiturate Screen Ur Phencyclidine Scrn Urine Amphetamine U Benzodiazepines Scrn Urine Cocaine Screen Urine Marijuana (THC) 04/05/18 23:09 WBC Hct MCV Plt Count Sodium Potassium BUN Creatinine Random Glucose AST ALT Troponin I Urine Color Urine Appearance Urine pH Ur Specific [place] Urine Protein Urine Glucose (UA) Urine Ketones Urine Blood Urine Nitrate Urine Bilirubin Urine Urobilinogen Ur Leukocyte Esterase Urine RBC Urine WBC Ur Epithelial Cells Amorphous Sediment Urine Bacteria Urine Culture Comments Urine Opiates Screen Negative Barbiturate Screen Negative Ur Phencyclidine Scrn Negative Urine Amphetamine Negative U Benzodiazepines Scrn Negative Urine Cocaine Screen Negative Urine Marijuana (THC) Negative - Vital Signs Patient's Vital Signs:: I have reviewed the patient's vital signs. Vital Signs: Vital Signs 04/05/18 22:20 Temperature 36.4 C Pulse Rate 98 Respiratory Rate 19 Blood Pressure 159/96 H O2 Sat by Pulse Oximetry 99 - EKG EKG: NSR, other - old ND EKG read: Interp. by me - CT/Ultrasound CT/Ultrasound Narrative: No acute changes. - Progress/Reassessment Chief Complaint: Seizure Activity Progress:: Improved Progress Note-Subjective: 04/06/18 01:58 Spoke with Violet HUMPHREY she agrees with observation admit. Departure Clinical Impression: Seizure - Departure Disposition: Still a patient Condition: Good
[2018-04-05 22:59] LABS: Hematocrit 40.1 % (37.0-47.0); Hemoglobin 13.4 gm/dL (12.5-16.0); Mean Cell Volume 85.1 fl (78-100); Mean Corpuscular Hemoglobin 28.5 pg (27-31); Mean Corpuscular Hgb Conc 33.4 g/dl (32-36); Mean Platelet Volume 8.9 fl (8-12.5); Neutrophil # 3.5 K/mm3 (1.3-6.0); Platelet Count 254 K/mm3 (150-450); Red Blood Count 4.71 M/mm3 (4.2-5.4); Red Cell Distribution Width 13.9 % (11.5-14.0); White Blood Count 6.3 K/mm3 (4.0-10.5)
[2018-04-05 23:17] LABS: Urine Appearance Slightly Cloudy (CLEAR); Urine Bacteria 1+; Urine Bilirubin Negative (NEGATIVE); Urine Blood Negative /ul (NEGATIVE); Urine Color Yellow; Urine Ketone Negative (NEGATIVE); Urine Nitrite Negative (NEGATIVE); Urine Protein Negative (NEGATIVE); Urine RBC None Seen /hpf (0-5); Urine Specific Gravity <=1.005 SP.GR. (1.005-1.010); Urine Urobilinogen Normal (NORMAL); Urine WBC 0-5 /hpf (0-5)
[2018-04-05 23:18] LABS: Urine Amorphous Sediment Moderate - 2+ (NONE-FEW)
[2018-04-05 23:22] LABS: ALT 26 U/L (19-67); AST 22 U/L (0-48); Albumin * 3.2 gm/dl (3.4-5.0); Alkaline Phosphatase * 102 U/L (50-170); BUN/Creatinine Ratio 16.9 (9.0-21.6); Bilirubin, Total 0.4 mg/dL (0.0-1.1); Blood Urea Nitrogen 13 mg/dL (3-23); Ca. Corrected For Albumin 9.6 mg/dL (8.4-10.2); Calcium * 9.3 mg/dL (7.9-10.9); Carbon Dioxide 26.5 mmol/L (24-32.6); Chloride 101 mmol/L (97-106); Glucose * 136 mg/dL (70-110); Potassium 3.5 mmol/L (3.4-4.6); Sodium 136 mmol/L (132-142); Total Protein 7.1 gm/dL (6.2-8.2); Troponin I Less than 0.017 ng/ml (0.00-0.10)
[2018-04-05 23:26] LABS: Cocaine Ur Negative (NEGATIVE); Urine Barbiturate Negative (NEGATIVE); Urine Benzodiazepines Negative (NEGATIVE); Urine Opiates Negative (NEGATIVE); Urine PCP Negative (NEGATIVE); Urine THC Negative (NEGATIVE)
--- NOTE | 2018-04-06 03:30 | HP ---
Chief Complaint - Chief Complaint Date of Service: 04/06/18 Time of Service: 03:16 Chief Complaint: "palpitations". Source of HPI- Pt; reliable, ERP report. History of Present Illness: Ms. Oleary is a 62-yr-old WM pt of [facility] with a PMH of: Anxiety, Hypothyroidism & Rheumatoid Arthritis. Pt was brought to the ED via the EMS after apparently being noted to have a 'seizure like activity' while at a local bar with her significant other. Pt is alert at the time of exam and is able to relay the before symptoms prior to the incident. She states that she has had issues with palpitations in the past and was started on a Beta Maximus. She normally takes it twice a day, but tonight, she had not taken her HS dose as she was hanging out at the bar. She states that she first got diaphoretic, then felt her heart fluttering and finally got SOB, but she does not remember anything after that. Significant other, Blayne states that she appeared to have lost consciousness but was "in and out of it." He denies noting body stiffening and jerking, rapid eye movement and tongue bitting. Pt states that she tends to stiffen when she is fighting the onset of symptoms. At the ED, CBC, BMP, Troponin & Toxicology labs, Head CT & EKG were unremarkable. Of note, pt has been hospitalized before for these LOC episodes in the past. In March, the MRI and EEG were normal. In January 2017, she had another EEG which was normal and also a Carotid Duplex which did not show any evidence of Stenosis and so as an Echocardiogram which showed EF of 70% with normal ventricular size. She reportedly has had history of passing out with joint injections. She reports facial numbness and LT hand numbness, but appears that she had been hospitalized in 2012 with these symptoms but diagnosis was unfound. She will be admitted under observation status for remote telemetry monitoring incase there is arrhythmias contributing to her symptoms and will repeat a Troponin level. Medical History (Last Updated 04/05/18 @ 22:45 by Marzena Lopez RN) Anxiety Hypothyroidism Osteoarthritis Rheumatoid arteritis Seizure Tear meniscus knee Surgical History: Surgical History (Last Updated 04/05/18 @ 22:47 by Marzena Lopez RN) Hx of hysterectomy (Acute) Hx of heart artery stent Family History: Family History (Last Updated 04/06/18 @ 04:25 by MILAGRO Nina) Mother Kidney disease Father No problems noted. Social History: Preferred Language Norwegian Smoking Status Never smoker Abuse History No History of abuse Psych History No pertinent hx Alcohol Use none Drug Use none Review Of Systems (GEN) - Review of Systems Generalized/Overall Review: Absent: Weakness, Chills, Fever, Malaise EENTM: Absent: Eye Pain, Blurred Vision, Tearing, Double Vision Respiratory: Absent: Cough, Shortness of Breath, Orthopnea Cardiac: Absent: Chest Pain, Edema, Palpitations Abdominal: Absent: Nausea, Vomiting, Hematemesis, Constipation Genitourinary: Absent: Burning, Itching, Urgency, Frequency Musculoskeletal: Absent: Joint Pain, Back Pain, Joint Swelling Neurological: Present: Anxiety, Depressed, Weakness. Absent: Headache Skin: Absent: Dryness, Lesions Endocrine: Absent: Intolerance to Cold, Increased Thirst Misc: All systems neg except as marked Immunizations: IMMUNIZATION HX Immunizations Up to Date unknown History of Influenza Vaccine Yes Hx Pneumococcal Vaccination No Allergies/Adverse Reactions: Allergies Allergy/AdvReac Type Severity Reaction Status Date / Time aspirin Allergy Severe Shortness Verified 05/10/17 14:20 of Breath cephalexin monohydrate Allergy Verified 05/10/17 14:20 [From Keflex] codeine Allergy Verified 05/10/17 14:20 methotrexate Allergy Verified 05/10/17 14:20 Penicillins Allergy Verified 05/10/17 14:20 prednisone Allergy Verified 05/10/17 14:20 leflunomide AdvReac Verified 05/10/17 14:20 Home Medications: HOME MEDICATIONS ALPRAZolam [Xanax] 1 mg PO HS 04/05/18 [Last Taken Unknown] Furosemide 20 mg PO DAILY PRN 04/05/18 [Last Taken Unknown] Levothyroxine Sodium [Synthroid] 150 mcg PO DAILY 04/05/18 [Last Taken Unknown] Metoprolol Succinate [Toprol Xl] 25 mg PO DAILY 04/05/18 [Last Taken Unknown] Exam - Exam Vital Signs: Vital Signs - Last Taken Temp 36.4 C 04/05/18 22:20 Pulse 79 04/06/18 02:30 Resp 16 04/06/18 02:30 BP 126/64 04/06/18 02:30 Pulse Ox 97 04/06/18 02:30 Constitutional: Present: Alert, Oriented x3, Cooperative, No distress ENT Exam: Present: normal ENT inspection Eye Exam: bilateral eye: normal inspection, PERRL Neck: Present: non-tender, full range of motion, supple Back Exam: Present: normal inspection, no CVA tenderness Breasts: Present: Exam deferred Respiratory: Present: No rales, No wheezing Cardiovascular/Chest: Present: normal peripheral pulses, regular rate, rhythm, no chest tenderness, no edema Abdomen: Present: Normal bowel sounds, soft, nontender /Rectal: Present: Exam deferred Extremity: Present: normal range of motion, non-tender, normal inspection Skin Exam: Present: warm/dry, no cyanosis Neurologic: Present: alert, normal mood/affect, oriented x 3 Appearance: Present: appropriate appearance, appropriate insight Eye contact: Present: cooperative, good eye contact, normal speech Thoughts: Present: normal thought pattern, no apparent hallucination Diagnostic Studies: Abnormal Lab Results 04/05/18 04/05/18 04/05/18 Range/Units 22:57 22:57 23:09 Immature Gran % (Auto) 0.80 H (0.001-0.429) % Immature Gran # (Auto) 0.05 H (0.000-0.0310) K/mm3 Eosinophils % 3.2 H (0.0-3.0) % Random Glucose 136 H (70-110) mg/dL Albumin 3.2 L (3.4-5.0) gm/dl Ur Leukocyte Esterase 75 H (NEGATIVE) /ul Amorphous Sediment Moderate - 2+ H (NONE-FEW) Urine Bacteria 1+ H (NONE) Laboratory Results WBC 6.3 K/mm3 (4.0-10.5) 04/05/18 22:57 RBC 4.71 M/mm3 (4.2-5.4) 04/05/18 22:57 Hgb 13.4 gm/dL (12.5-16.0) 04/05/18 22:57 Hct 40.1 % (37.0-47.0) 04/05/18 22:57 MCV 85.1 fl (78-100) 04/05/18 22:57 MCH 28.5 pg (27-31) 04/05/18 22:57 MCHC 33.4 g/dl (32-36) 04/05/18 22:57 RDW 13.9 % (11.5-14.0) 04/05/18 22:57 Plt Count 254 K/mm3 (150-450) 04/05/18 22:57 MPV 8.9 fl (8-12.5) 04/05/18 22:57 Immature Gran % (Auto) 0.80 % (0.001-0.429) H 04/05/18 22:57 Immature Gran # (Auto) 0.05 K/mm3 (0.000-0.0310) H 04/05/18 22:57 Neutrophils % 55.0 % (42-75.0) 04/05/18 22:57 Lymphocytes % 32.4 % (20-51) 04/05/18 22:57 Monocytes % 8.1 % (0.0-9) 04/05/18 22:57 Eosinophils % 3.2 % (0.0-3.0) H 04/05/18 22:57 Basophils % 0.5 % (0.0-1.0) 04/05/18 22:57 Nucleated RBC % 0.0 k/mm3 (0-1) 04/05/18 22:57 Neutrophils # 3.5 K/mm3 (1.3-6.0) 04/05/18 22:57 Lymphocytes # 2.05 k/mm3 (1.5-3.5) 04/05/18 22:57 Monocytes # 0.5 k/mm3 (0.0-1.0) 04/05/18 22:57 Eosinophils # 0.2 k/mm3 (0.0-0.7) 04/05/18 22:57 Absolute Basophils 0.0 k/mm3 (0.0-0.1) 04/05/18 22:57 Sodium 136 mmol/L (132-142) 04/05/18 22:57 Plasma Sodium 137 mmol/L (130-142) 04/05/18 22:57 Potassium 3.5 mmol/L (3.4-4.6) 04/05/18 22:57 Chloride 101 mmol/L (97-106) 04/05/18 22:57 Carbon Dioxide 26.5 mmol/L (24-32.6) 04/05/18 22:57 Anion Gap 12.0 mmol/L (6.8-13.8) 04/05/18 22:57 BUN 13 mg/dL (3-23) 04/05/18 22:57 Creatinine 0.77 mg/dL (0.4-1.4) 04/05/18 22:57 Est GFR (Non-Af Amer) 81 mL/min (60-130) 04/05/18 22:57 BUN/Creatinine Ratio 16.9 (9.0-21.6) 04/05/18 22:57 Random Glucose 136 mg/dL (70-110) H 04/05/18 22:57 Calcium 9.3 mg/dL (7.9-10.9) 04/05/18 22:57 Calcium Adj for Albumin 9.6 mg/dL (8.4-10.2) 04/05/18 22:57 Total Bilirubin 0.4 mg/dL (0.0-1.1) 04/05/18 22:57 AST 22 U/L (0-48) 04/05/18 22:57 ALT 26 U/L (19-67) 04/05/18 22:57 Alkaline Phosphatase 102 U/L (50-170) 04/05/18 22:57 Troponin I Less than 0.017 ng/ml (0.00-0.10) 04/05/18 22:57 Total Protein 7.1 gm/dL (6.2-8.2) 04/05/18 22:57 Albumin 3.2 gm/dl (3.4-5.0) L 04/05/18 22:57 Urine Color Yellow 04/05/18 23:09 Urine Appearance Slightly cloudy (CLEAR) 04/05/18 23:09 Urine pH 6.0 pH (5.0-7.0) 04/05/18 23:09 Ur Specific [place] <=1.005 SP.GR. (1.005-1.010) 04/05/18 23:09 Urine Protein Negative mg/dL (NEGATIVE) 04/05/18 23:09 Urine Glucose (UA) Negative mg/dL (NEGATIVE) 04/05/18 23:09 Urine Ketones Negative mg/dL (NEGATIVE) 04/05/18 23:09 Urine Blood Negative /ul (NEGATIVE) 04/05/18 23:09 Urine Nitrate Negative (NEGATIVE) 04/05/18 23:09 Urine Bilirubin Negative mg/dl (NEGATIVE) 04/05/18 23:09 Urine Urobilinogen Normal EU/dl (NORMAL) 04/05/18 23:09 Ur Leukocyte Esterase 75 /ul (NEGATIVE) H 04/05/18 23:09 Urine RBC None seen /hpf (0-5) 04/05/18 23:09 Urine WBC 0-5 /hpf (0-5) 04/05/18 23:09 Ur Epithelial Cells Trace /hpf (0-5) 04/05/18 23:09 Amorphous Sediment Moderate - 2+ (NONE-FEW) H 04/05/18 23:09 Urine Bacteria 1+ (NONE) H 04/05/18 23:09 Urine Culture Comments Culture to follow 04/05/18 23:09 Urine Opiates Screen Negative (NEGATIVE) 04/05/18 23:09 Barbiturate Screen Negative (NEGATIVE) 04/05/18 23:09 Ur Phencyclidine Scrn Negative (NEGATIVE) 04/05/18 23:09 Urine Amphetamine Negative (NEGATIVE) 04/05/18 23:09 U Benzodiazepines Scrn Negative (NEGATIVE) 04/05/18 23:09 Urine Cocaine Screen Negative (NEGATIVE) 04/05/18 23:09 Urine Marijuana (THC) Negative (NEGATIVE) 04/05/18 23:09 Assessment/Plan - Assessment/Plan (1) Syncope Assessment: Work-up in the past for the syncope event/ LOC have been essentially negative. Tonight's episode does not cause any suspicion of seizure activity. Cardiac syncope unlikely- EKG/Troponin were negative of ACS/AR and no structural hear disease in previous Echo study. However, she will be placed on telemetry monitoring to determine if arrhythmia is a contributing factor and if that's not the case, will highly suspect that this is vasovagal syncope and will provide teaching on awareness and avoidance of triggers e.g hot crowded environments, volume depletion-increase salt/water intake, early recognition of prodromal symptoms and supine position to abort the episodes. Problem: Acute (2) Anxiety Problem: Chronic (3) Rheumatoid arthritis Problem: Chronic Qualifiers: Rheumatoid arthritis location: multiple sites Rheumatoid factor presence: unspecified presence Qualified Code(s): M06.9 - Rheumatoid arthritis, unspecified
[2018-04-06 03:50] LABS: Magnesium 1.9 mg/dL (1.2-2.8); Phosphorus 4.4 mg/dL (2.2-4.2)
[2018-04-06] MEDS ORDERED: FUROSEMIDE 20 MG TABLET PO PRN (06:29)
--- NOTE | 2018-04-06 07:11 | PN ---
Progess Note - Interim Date: 04/06/18 Time: 07:06 Narrative: 04/06/18 07:06 Reviewed H&P, labs and saw and examined pt. Agree with [employer] Hospitalist's A/P and that this was not a major cardiac or neurologic event. Pt. admits to not sleeping well for several days prior to onset of sx, despite having xanax to take prn HS. She does worry a lot about her health as she has had some issues in the past, but denies any significant sx this am except that she is anxious. PE: Alert and Ox3, very anxious, obese CTA anne RRR without murmur or rub. Heart sounds are normal No facial assymetry or slurred speach CN II-XII intact grossly No dysmetria, but slight tremor in left hand. She is right hand dependent. A/P: Believe her event last night was vasovagal in nature, which I discussed with her and d/w her watching her throughout the am, but most likely will discharge later in the day.
[2018-04-06] MEDS ORDERED: NITROGLYCERIN 0.4 MG/TAB BTL SL PRN (07:53)
[2018-04-06] MEDS ORDERED: NITROGLYCERIN 0.4 MG/TAB BTL SL ONE (07:56)
[2018-04-06] MEDS ORDERED: ALPRAZolam 0.25 MG TABLET PO STA (08:17)
[2018-04-06 08:41] LABS: Troponin I Less than 0.017 ng/ml (0.00-0.10)
[2018-04-06 08:47] LABS: CK Total * 70 U/L (0-259)
[2018-04-06] MEDS ORDERED: LEVOTHYROXINE SODIUM 150 MCG TABLET PO SCH (09:00)
[2018-04-06] MEDS ORDERED: METOPROLOL SUCCINATE 25 MG TABLET.SA PO SCH (09:00)
[2018-04-06] MEDS ORDERED: MAG HYDROX/ALUMINUM HYD/SIMETH 30 ML UDC PO STA (10:14)
[2018-04-06] MEDS ORDERED: diphenhydrAMINE HCL 25 MG CAPSULE PO ONE (10:15)
[2018-04-06] MEDS ORDERED: FAMOTIDINE 20 MG TABLET PO SCH (11:00)
--- NOTE | 2018-04-06 16:06 | DS ---
(1) Syncope Problem: Acute (2) Anxiety Problem: Chronic (3) Chest pain Problem: Acute Qualifiers: Chest pain type: unspecified Qualified Code(s): R07.9 - Chest pain, unspecified (4) Costochondritis Problem: Chronic (5) GERD (gastroesophageal reflux disease) Problem: Chronic Qualifiers: Esophagitis presence: without esophagitis Qualified Code(s): K21.9 - Gastro -esophageal reflux disease without esophagitis (6) Hypertension Problem: Chronic Qualifiers: Hypertension type: essential hypertension Qualified Code(s): I10 - Essential (primary) hypertension Description of Stay: Pt admitted for chest pain, possible syncopal episode, questionable seizure activity and abdominal pain. Her sx were concerning given the left sided CP that radiated into left neck and arm, with sx being relieved with nitroglycerin , but she had no EKG's or Trop I changes c/w ACS. Her sx were improved even more with maalox and pepcid, making the dx of esophageal spasm/GERD the most likely cause of her sx. It was explained to the patient how nitro can help such sx and how her cardiac tests were negative and so I was not concerned about her sx being from a cardiac source. She seemed happy and relieved to hear the explanations and felt comfortable going home, getting OTC zantac 150mg po bid for her stomach. She had no other changes in her meds. Procedures Performed: none Results and Findings: Lab Pending Results 04/05/18 04/05/18 04/05/18 22:57 22:57 22:57 WBC 6.3 RBC 4.71 Hgb 13.4 Hct 40.1 MCV 85.1 MCH 28.5 MCHC 33.4 RDW 13.9 Plt Count 254 MPV 8.9 Immature Gran % (Auto) 0.80 H Immature Gran # (Auto) 0.05 H Neutrophils % 55.0 Lymphocytes % 32.4 Monocytes % 8.1 Eosinophils % 3.2 H Basophils % 0.5 Nucleated RBC % 0.0 Neutrophils # 3.5 Lymphocytes # 2.05 Monocytes # 0.5 Eosinophils # 0.2 Absolute Basophils 0.0 Sodium 136 Plasma Sodium 137 Potassium 3.5 Chloride 101 Carbon Dioxide 26.5 Anion Gap 12.0 BUN 13 Creatinine 0.77 Est GFR (Non-Af Amer) 81 BUN/Creatinine Ratio 16.9 Random Glucose 136 H Calcium 9.3 Calcium Adj for Albumin 9.6 Phosphorus 4.4 H Magnesium 1.9 Total Bilirubin 0.4 AST 22 ALT 26 Alkaline Phosphatase 102 Creatine Kinase CK-MB (CK-2) CK-MB (CK-2) Rel Index Troponin I Less than 0.017 B-Natriuretic Peptide 179 Total Protein 7.1 Albumin 3.2 L Urine Color Urine Appearance Urine pH Ur Specific [place] Urine Protein Urine Glucose (UA) Urine Ketones Urine Blood Urine Nitrate Urine Bilirubin Urine Urobilinogen Ur Leukocyte Esterase Urine RBC Urine WBC Ur Epithelial Cells Amorphous Sediment Urine Bacteria Urine Culture Comments Urine Opiates Screen Barbiturate Screen Ur Phencyclidine Scrn Urine Amphetamine U Benzodiazepines Scrn Urine Cocaine Screen Urine Marijuana (THC) 04/05/18 04/05/18 04/06/18 23:09 23:09 08:14 WBC RBC Hgb Hct MCV MCH MCHC RDW Plt Count MPV Immature Gran % (Auto) Immature Gran # (Auto) Neutrophils % Lymphocytes % Monocytes % Eosinophils % Basophils % Nucleated RBC % Neutrophils # Lymphocytes # Monocytes # Eosinophils # Absolute Basophils Sodium Plasma Sodium Potassium Chloride Carbon Dioxide Anion Gap BUN Creatinine Est GFR (Non-Af Amer) BUN/Creatinine Ratio Random Glucose Calcium Calcium Adj for Albumin Phosphorus Magnesium Total Bilirubin AST ALT Alkaline Phosphatase Creatine Kinase 70 CK-MB (CK-2) 2.0 CK-MB (CK-2) Rel Index 2.9 Troponin I Less than 0.017 B-Natriuretic Peptide Total Protein Albumin Urine Color Yellow Urine Appearance Slightly cloudy Urine pH 6.0 Ur Specific [place] <=1.005 Urine Protein Negative Urine Glucose (UA) Negative Urine Ketones Negative Urine Blood Negative Urine Nitrate Negative Urine Bilirubin Negative Urine Urobilinogen Normal Ur Leukocyte Esterase 75 H Urine RBC None seen Urine WBC 0-5 Ur Epithelial Cells Trace Amorphous Sediment Moderate - 2+ H Urine Bacteria 1+ H Urine Culture Comments Culture to follow Urine Opiates Screen Negative Barbiturate Screen Negative Ur Phencyclidine Scrn Negative Urine Amphetamine Negative U Benzodiazepines Scrn Negative Urine Cocaine Screen Negative Urine Marijuana (THC) Negative Discharge Location: Home Disposition: Home self-care Condition: Good Discharge Activity: Activity as tolerated Discharge Diet: General/regular food Referrals: [facility] CNP [Primary Care Provider] - 04/17/18 9:15 am Additional Patient Instructions (free text): Follow up with [facility] on 04/17/18 at 9:15am. Complete Home Medications List: Complete Home Medication List: ALPRAZolam [Xanax] 1 mg PO HS 04/05/18 Furosemide 20 mg PO DAILY PRN 04/05/18 Levothyroxine Sodium [Synthroid] 150 mcg PO DAILY 04/05/18 Metoprolol Succinate [Toprol Xl] 25 mg PO DAILY 04/05/18 Famotidine [Pepcid] 30 mg PO BID tablet 04/06/18
[2018-04-06 16:29] VITALS: BP 134/94
[2018-04-06] MEDS ORDERED: ALPRAZolam 0.5 MG TABLET PO SCH (21:00)
== END 2018-04-06 16:38 | disposition home or self-care (01) ==
LOC: MS 22:15 → ER 22:15 → MS 04-06 02:45
PROVIDERS: ADMIT Nurse Practitioner; ATTEND Family Medicine
DX: R07.9 Chest pain, unspecified; I10 Essential (primary) hypertension; Z68.32 Body mass index [BMI] 32.0-32.9, adult; K21.9 Gastro-esophageal reflux disease without esophagitis; R55 Syncope and collapse; F41.9 Anxiety disorder, unspecified; M06.9 Rheumatoid arthritis, unspecified
CPT/HCPCS: 36415; 70450; 80053; 80307; 81001; 82550; 82553; 83519; 83735; 83880; 84100; 84484; 85025; 87086; 93005; 99284; G0378; G0479

== ENCOUNTER 2020-05-20 13:00 | Inpatient (IN) ==
--- NOTE | 2020-05-20 13:29 | ERNOTE ---
Dyspnea - Date Date of Service: 05/20/20 - General Presenting Symptoms: shortness of breath, difficulty of breathing Time Seen by Provider: 05/20/20 13:20 Source: patient Exam Limitations: no limitations - Immun/Allergies/Home Medications Immunizations: IMMUNIZATION HX Immunizations Up to Date Yes History of Influenza Vaccine Yes Hx Pneumococcal Vaccination No Allergies/Adverse Reactions: Allergies aspirin Allergy (Severe, Verified 05/20/20 13:05) Shortness of Breath codeine Allergy (Severe, Verified 05/20/20 13:05) Anaphylaxis Penicillins Allergy (Severe, Verified 05/20/20 13:05) Swelling (Other) shortness of breath methotrexate Allergy (Verified 05/20/20 13:05) cardiac effusion prednisone Allergy (Verified 05/20/20 13:05) Vomiting cephalexin monohydrate [From Keflex] Adverse Reaction (Unknown, Verified 05/20/20 13:05) leflunomide Adverse Reaction (Verified 05/20/20 13:05) Home Medications: HOME MEDICATIONS ALPRAZolam [Xanax] 1 mg PO HS 04/05/18 [Last Taken Unknown] Levothyroxine Sodium [Synthroid] 150 mcg PO DAILY 04/05/18 [Last Taken Unknown] Metoprolol Succinate [Toprol Xl] 25 mg PO DAILY 04/05/18 [Last Taken Unknown] Glimepiride [Amaryl] 2 mg PO DAILY 07/06/19 [Last Taken Unknown] Walker [Elier Folding Walker] 1 ea [facility] DAILY #1 ea 03/19/20 [Last Taken Unknown] - History of Present Illness Narrative: 64-year-old female states last night she became dizzy lightheaded passed out laid on the floor for 3 hours crawled this morning to the front door neighbor store called the police and ambulance patient is complaining of pain in her lower back and her left hip and pelvis her is admitted at the [facility] in [place] tested positive for COVID she was in quarantine she had a test a few days ago we do not know the results in route she complained of a short of breath and her sats have been in the low 90s Patient stated that she is just finished for her is on antibiotics for ear infection and throat infection she said it was doxycycline Date (Duration): 05/20/20 Time (Timing): 13:23 Severity: moderate, other 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 Frequency of episodes: Reports: no prior episodes Modifying Factors - (Improves): Reports: nothing Modifying Factors (Worsens): Reports: nothing Associated Symptoms-Dyspnea: Reports: dizziness, lightheadedness, weakness Prior Treatment: Reports: recently seen, treated by physician, currently on antibiotics Review of Systems - Review of Systems Constitutional: Present: recent illness EYE: Present: no symptoms reported ENT: Present: no symptoms reported Respiratory: Present: shortness of breath Cardiology: Present: no symptoms reported Gastrointestinal/Abdominal: Present: nausea, vomiting Genitourinary: Present: no symptoms reported Musculoskeletal: Present: no symptoms reported Skin: Present: no symptoms reported Neurological: Present: no symptoms reported Endocrine: Present: no symptoms reported Hematologic/Lymphatic: Present: no symptoms reported Psych: Present: no symptoms reported All Other Systems: All systems neg except as marked Medical History (Last Reviewed 05/20/20 @ 13:25 by Anthony Sparks MD) Interstitial cystitis (Acute) Acute UTI (urinary tract infection) (Acute) Chest wall pain (Acute) Seizures (Acute) Chest pain (Acute) Hypothyroidism (Chronic) Pustule (Acute) Syncope (Acute) Panic attack (Acute) Bronchitis (Acute) Pleurisy (Acute) Chest wall pain (Acute) Syncope and collapse (Acute) Costochondritis (Chronic) Pericarditis (Resolved) Rheumatoid arthritis (Chronic) Hypothyroidism (Chronic) Hypertension (Chronic) Anxiety (Chronic) Vasovagal syncope (Acute) GERD (gastroesophageal reflux disease) (Chronic) Post-traumatic headache, not intractable (Chronic) Insomnia (Chronic) Syncope (Acute) Anxiety (Chronic) Acute flank pain (Acute) UTI (urinary tract infection) (Acute) Anxiety Diabetes GERD (gastroesophageal reflux disease) Hypertension Hypothyroidism Osteoarthritis Pericarditis Primary localized osteoarthritis of knee Onset Date: 07/06/17 lt Rheumatoid arteritis Seizure Tachycardia Onset Date: Unknown Tear meniscus knee Surgical History: Surgical History (Last Reviewed 05/20/20 @ 13:25 by Anthony Sparks MD) Hx of hysterectomy (Acute) H/O hernia repair Onset Date: Unknown Hx of heart artery stent S/P left knee arthroscopy Onset Date: Unknown PMM Family History: Family History (Last Reviewed 05/20/20 @ 13:04 by Batsheva Acosta RN) Mother Kidney disease Brother Heart disease, Onset Age: 3 Brother Heart disease Social History: (Last Reviewed 05/20/20 @ 13:04 by Batsheva Acosta RN) Social History: mcc: No Marital status: household members: spouse current occupational status: disabled current occupation: retired Highest education level completed: some college, no degree Service: No Tobacco: Smoking Status: Never smoker second hand exposure: No Alcohol: alcohol intake: former Substance Use: substance use type: does not use Dietary Habits: caffeine: Yes Type: coffee Exercise: Physical activity functional status: normal ROM and activity Physical Exam - Physical Exam General Appearance: Present: wd/wn, alert, mild distress Head Exam: Present: normal inspection Eye Exam: Normal inspection: bilateral Ears, Nose, Throat: Present: dry mucous membranes Neck: Present: normal inspection Respiratory: Present: chest nontender, rhonchi Cardiovascular/Chest: Present: regular rate, rhythm Gastrointestinal/Abdominal: Present: normal bowel sounds Back Exam: Present: normal inspection Extremity Exam: Present: normal inspection, other - Able to move right and left leg no pain no deformity or shortening of the left leg however the left hip and pelvis painful on palpation Neurological Exam: Present: alert, oriented Skin Exam: Present: normal color Lymphatic Exam: Present: no adenopathy Progress - Results and Orders Patient's Lab Results:: I have reviewed the patient's lab results. Results and Orders: Laboratory Tests 05/20/20 05/20/20 05/20/20 13:30 13:30 13:32 WBC 4.4 RBC 4.60 Hgb 13.4 Hct 40.5 MCV 88.0 MCH 29.1 MCHC 33.1 RDW 13.7 Plt Count 164 Neutrophils % 57.9 Lymphocytes % 30.8 Sodium 136 Plasma Sodium 136 Potassium 3.3 L Chloride 101 Carbon Dioxide 31.4 Anion Gap 6.9 BUN 9 Creatinine 0.74 Est GFR (Non-Af Amer) 84 BUN/Creatinine Ratio 12.2 Random Glucose 131 H Calcium 8.4 Calcium Adj for Albumin 9.4 Total Bilirubin 0.4 AST 39 ALT 32 Alkaline Phosphatase 77 Creatine Kinase 60 Troponin I Less than 0.017 Total Protein 6.2 Albumin 2.3 L Urine Color Yellow Urine Appearance Clear Urine pH 7.0 Ur Specific [place] 1.015 Urine Protein Negative Urine Glucose (UA) Negative Urine Ketones 15 Urine Blood Negative Urine Nitrate Negative Urine Bilirubin Negative Urine Urobilinogen Normal Ur Leukocyte Esterase Negative Urine RBC None seen Urine WBC None seen Ur Epithelial Cells 0-5 Urine Bacteria None seen Urine Culture Comments No culture indicated Laboratory Tests 05/20/20 13:24 D-Dimer 0.76 H - Vital Signs Patient's Vital Signs:: I have reviewed the patient's vital signs. Vital Signs: Vital Signs 05/20/20 13:01 Temperature 36.0 C Pulse Rate 74 Respiratory Rate 22 H Blood Pressure 133/106 H O2 Sat by Pulse Oximetry 93 - EKG EKG #2 EKG: NSR EKG read: Reviewed by me EKG Comments: Sinus rhythm heart rate 72 no acute changes from 2018 - X-Ray X-Ray #1 X-Ray: chest Interpretation: Discd w/ radiologist X-ray Comments: [facility] [address] [place] [address] NAME: Ella Oleary : 1955 MR #: [id number] CC: Nette Vale CNP LOC: ER ADM DATE: DIS DATE: X-RAY REPORT ~[id number] RAD/Chest Single View *~ Exam Date: 05/20/2020 13:40 Ordering Physician: Anthony Sparks MD History: Fall. Syncope. Shortness of breath. Technique: Single AP view of the chest obtained. Comparison: 04/07/2018 Findings: Patient is slightly rotated to the right. There is borderline cardiomegaly. There is overall low lung volumes which does cause crowding the bronchovascular markings. There is some patchy consolidation in the right mid to upper lung field and the left lung base. This may be atelectasis but developing infectious infiltrates must be considered clinically. No effusions identified on this single view. IMPRESSION: BORDERLINE CARDIOMEGALY. PATCHY CONSOLIDATION LEFT LUNG BASE AND RIGHT MID TO UPPER LUNG FIELD ATELECTASIS VERSUS DEVELOPING INFILTRATES. Electronically signed by Junior Bell M.D.. Junior Bell MD Dict: 05/20/20 1403 Typed: 05/20/20 1403/ 05/20/20 1404 X-Ray #2 X-Ray: hip Interpretation: Discd w/ radiologist X-ray Comments: NAME: Ella Oleary : 1955 MR #: [id number] CC: Nette Vale CNP LOC: ER ADM DATE: DIS DATE: X-RAY REPORT ~[id number] RAD/Hip & Pelvis 2-3 views LT *~ Exam Date: 05/20/2020 13:43 Ordering Physician: Anthony Sparks MD History: Fall. Pain post injury. Technique: 2 views of the left hip obtained. 3 images utilized. Single AP view of the pelvis obtained. Comparison: None. Findings: Both hips are normally located. SI joints and symphysis pubis appear within normal limits. There are mild degenerative changes lower visualized lumbar spine. No fractures identified. IMPRESSION: NO ACUTE OSSEOUS PATHOLOGY IDENTIFIED. Electronically signed by Junior Bell M.D.. Junior Bell MD Dict: 05/20/20 1408 Typed: 05/20/20 1408/ 05/20/20 1409 - Progress/Reassessment Chief Complaint: Dyspnea Progress Note-Subjective: 05/20/20 16:18 Patient was tried to stand up and walk went to bed 3 steps became fatigued O2 sats dropped into the mid 80s d-dimer is come back elevated will be started on Lovenox Plan - Plan Plan: Patient will be admitted to the hospital to Dr. Titus diagnosis of COVID pneumonia in the time she is been here patient seems to be deteriorating more fatigued coughing has changed more productive Departure Clinical Impression: Lab test positive for detection of COVID-19 virus, Pneumonia involving right lung - Departure Disposition: Short Term Hospital Inpatient Condition: Serious Referrals: Nette Vale CNP [Primary Care Provider] -
[2020-05-20 13:44] LABS: Urine Bilirubin Negative (NEGATIVE); Urine Blood Negative /ul (NEGATIVE); Urine Ketone 15 mg/dL (NEGATIVE); Urine Nitrite Negative (NEGATIVE); Urine Protein Negative (NEGATIVE); Urine Specific Gravity 1.015 SP.GR. (1.005-1.010); Urine Urobilinogen Normal (NORMAL)
[2020-05-20 13:54] LABS: Urine Appearance Clear (CLEAR); Urine Bacteria None Seen; Urine Color Yellow; Urine RBC None Seen /hpf (0-5); Urine WBC None Seen /hpf (0-5)
[2020-05-20 13:56] LABS: ALT 32 U/L (19-67); AST 39 U/L (0-48); Albumin * 2.3 gm/dl (3.4-5.0); Alkaline Phosphatase * 77 U/L (50-170); Anion Gap 6.9 mmol/L (6.8-13.8); BUN/Creatinine Ratio 12.2 (9.0-21.6); Bilirubin, Total 0.4 mg/dL (0.0-1.1); Blood Urea Nitrogen 9 mg/dL (3-23); CK Total * 60 U/L (0-259); Ca. Corrected For Albumin 9.4 mg/dL (8.4-10.2); Calcium * 8.4 mg/dL (7.9-10.9); Carbon Dioxide 31.4 mmol/L (24-32.6); Chloride 101 mmol/L (97-106); Glucose * 131 mg/dL (70-110); Hematocrit 40.5 % (37.0-47.0); Hemoglobin 13.4 gm/dL (12.5-16.0); Mean Corpuscular Hemoglobin 29.1 pg (27-31); Mean Corpuscular Hgb Conc 33.1 g/dl (32-36); Mean Platelet Volume 9.5 fl (8-12.5); Neutrophil # 2.6 K/mm3 (1.3-6.0); Neutrophil % 57.9 % (42-75.0); Platelet Count 164 K/mm3 (150-450); Potassium 3.3 mmol/L (3.4-4.6); Red Cell Distribution Width 13.7 % (11.5-14.0); Sodium 136 mmol/L (132-142); Total Protein 6.2 gm/dL (6.2-8.2); Troponin I Less than 0.017 ng/mL (0.00-0.10); White Blood Count 4.4 K/mm3 (4.0-10.5)
[2020-05-20] MEDS ORDERED: ONDANSETRON HCL/PF 2 MG/ML VIAL IV ONE (14:49)
[2020-05-20] MEDS ORDERED: ONDANSETRON HCL/PF 2 MG/ML VIAL ONE (14:50)
[2020-05-20] MEDS ORDERED: AZITHROMYCIN 500 MG in DEXTROSE 5 % IN WATER 250 ML IV ONE ×2 (15:45)
[2020-05-20 16:01] LABS: CRP 13.7 mg/dL (0.0-0.9)
[2020-05-20] MEDS ORDERED: ENOXAPARIN SODIUM 30 MG/0.3 ML SYRG SC ONE ×2 (16:19→20:00)
[2020-05-20] MEDS ORDERED: ENOXAPARIN SODIUM 40 MG/0.4 ML SYRG SC SCH (17:00)
--- NOTE | 2020-05-20 17:11 | HP ---
Chief Complaint - Chief Complaint Date of Service: 05/20/20 Time of Service: 16:00 Chief Complaint: Shortness of breath, weakness, cough, syncopal event History of Present Illness: Ella Oleary is a 64-year-old female who appears older than her stated years had been at home alone yesterday when she had a syncopal event. She had been started on doxycycline for a respiratory infection. She does have a seizure history. After her syncopal event she was unable to get up. She pulled herself to her door and opened it and was able to get the attention of neighbors who found her on the floor and called EMS. Her is in the [facility] with COVID-19 infection. Her COVID testing is also positive (detected). On arrival she appeared to be in the moderate category with respiratory rate in the low 20s and oxygen saturations the 94 to 96% range. She has deteriorated in the emergency room into a severe category with a respiratory rate of about 36 and O2 sats dropping to 88% with any minor exertion and at 92% at rest. She also has tachycardia. Attempts at drawing blood gases have failed so far. I went to see her in the emergency room and while there and watching her respiratory rate she had another syncopal event in which she was not responsive for approximately 10 to 15 seconds. With stimulation she reawakened with a startle and wondered what it happened. Chest x-ray does show a patchy infiltrate in the right lung suggestive of pneumonia. Blood gases and procalcitonin are still pending. In checking with surrounding [facility], they are on diversion themselves due to the overabundance of COVID-19 infections. Therefore she will be admitted to SCU room 1. Medical History (Last Reviewed 05/20/20 @ 13:25 by Anthony Sparks MD) Interstitial cystitis (Acute) Acute UTI (urinary tract infection) (Acute) Chest wall pain (Acute) Seizures (Acute) Chest pain (Acute) Hypothyroidism (Chronic) Pustule (Acute) Syncope (Acute) Panic attack (Acute) Bronchitis (Acute) Pleurisy (Acute) Chest wall pain (Acute) Syncope and collapse (Acute) Costochondritis (Chronic) Pericarditis (Resolved) Rheumatoid arthritis (Chronic) Hypothyroidism (Chronic) Hypertension (Chronic) Anxiety (Chronic) Vasovagal syncope (Acute) GERD (gastroesophageal reflux disease) (Chronic) Post-traumatic headache, not intractable (Chronic) Insomnia (Chronic) Syncope (Acute) Anxiety (Chronic) Acute flank pain (Acute) UTI (urinary tract infection) (Acute) Anxiety Diabetes GERD (gastroesophageal reflux disease) Hypertension Hypothyroidism Osteoarthritis Pericarditis Primary localized osteoarthritis of knee Onset Date: 07/06/17 lt Rheumatoid arteritis Seizure Tachycardia Onset Date: Unknown Tear meniscus knee Surgical History: Surgical History (Last Reviewed 05/20/20 @ 13:25 by Anthony Sparks MD) Hx of hysterectomy (Acute) H/O hernia repair Onset Date: Unknown Hx of heart artery stent S/P left knee arthroscopy Onset Date: Unknown PMM Family History: Family History (Last Reviewed 05/20/20 @ 13:04 by Batsheva Acosta RN) Mother Kidney disease Brother Heart disease, Onset Age: 3 Brother Heart disease Social History: (Last Reviewed 05/20/20 @ 13:04 by Batsheva Acosta RN) Social History: long-term: No Marital status: household members: spouse current occupational status: disabled current occupation: retired Highest education level completed: some college, no degree Service: No Tobacco: Smoking Status: Never smoker second hand exposure: No Alcohol: alcohol intake: former Substance Use: substance use type: does not use Dietary Habits: caffeine: Yes Type: coffee Exercise: Physical activity functional status: normal ROM and activity Review Of Systems (GEN) - Review of Systems Generalized/Overall Review: Present: Weakness, Malaise, Fatigue EENTM: Present: Throat Pain Respiratory: Present: Cough, Shortness of Breath Cardiac: Present: Syncope - At home and once again here in the ER that was witnessed by me. Abdominal: Present: No Symptoms Reported Genitourinary: Present: No Symptoms Reported Musculoskeletal: Present: No Symptoms Reported Neurological: Present: Weakness Skin: Present: No Symptoms Reported Endocrine: Present: No Symptoms Reported Immunizations: IMMUNIZATION HX Immunizations Up to Date Yes History of Influenza Vaccine Yes Hx Pneumococcal Vaccination No Allergies/Adverse Reactions: Allergies Allergy/AdvReac Type Severity Reaction Status Date / Time aspirin Allergy Severe Shortness Verified 05/20/20 13:05 of Breath codeine Allergy Severe Anaphylaxis Verified 05/20/20 13:05 Penicillins Allergy Severe Swelling Verified 05/20/20 13:05 (Other) methotrexate Allergy cardiac Verified 05/20/20 13:05 effusion prednisone Allergy Vomiting Verified 05/20/20 13:05 cephalexin monohydrate AdvReac Unknown Verified 05/20/20 13:05 [From Keflex] leflunomide AdvReac Verified 05/20/20 13:05 Home Medications: HOME MEDICATIONS ALPRAZolam [Xanax] 1 mg PO HS 04/05/18 [Last Taken Unknown] Levothyroxine Sodium [Synthroid] 150 mcg PO DAILY 04/05/18 [Last Taken Unknown] Metoprolol Succinate [Toprol Xl] 25 mg PO DAILY 04/05/18 [Last Taken Unknown] Glimepiride [Amaryl] 2 mg PO DAILY 07/06/19 [Last Taken Unknown] Walker [Elier Folding Walker] 1 ea MC DAILY #1 ea 03/19/20 [Last Taken Unknown] Exam - Exam Vital Signs: Vital Signs - Last Taken Temp 36.0 C 05/20/20 13:01 Pulse 75 05/20/20 16:25 Resp 13 05/20/20 16:25 BP 182/105 H 05/20/20 16:25 Pulse Ox 91 L 05/20/20 16:25 Constitutional: Present: Alert, Oriented x3, Cooperative, Well developed, Moderate distress, Elderly, Obese ENT Exam: Present: normal ENT inspection, hearing grossly normal, pharynx normal, TMs normal Eye Exam: bilateral eye: normal inspection, PERRL, EOMI Neck: Present: non-tender, full range of motion, supple, normal inspection, trachea midline Back Exam: Present: normal inspection, no CVA tenderness, no vertebral tenderness Respiratory: Present: chest non-tender, respiratory distress, rhonchi Cardiovascular/Chest: Present: normal peripheral pulses, regular rate, rhythm, no chest tenderness, no edema, no gallop, no JVD, no murmur, no rub Peripheral Pulses: carotid (R): 2+, carotid (L): 2+, radial (R): 2+, radial (L): 2+ Abdomen: Present: Normal bowel sounds, soft, nontender, nondistended, no rebound tenderness, no hepatospenomegaly, no masses /Rectal: Present: Exam deferred Extremity: Present: normal range of motion, non-tender, normal inspection, no pedal edema, no calf tenderness, normal capillary refill Skin Exam: Present: normal color, warm/dry, no cyanosis Lymphatic: Present: no adenopathy Neurologic: Present: bartacker II-XII nml as tested, no motor/sensory deficits, alert, normal mood/affect, motor weakness Appearance: Present: appropriate appearance, neat Eye contact: Present: cooperative, good eye contact, avoids eye contact, decreased rate of speech Thoughts: Present: normal thought pattern, no apparent hallucination Diagnostic Studies: Abnormal Lab Results 05/20/20 05/20/20 05/20/20 Range/Units 13: 13:24 13:24 Immature Gran % (Auto) (0.001-0.429) % Immature Gran # (Auto) (0.000-0.0310) K/mm3 Monocytes % (0.0-9) % Lymphocytes # (1.5-3.5) k/mm3 D-Dimer 0.76 H (0.19-0.49) ug/mL pCO2 (32.0-45.0) mmHg pO2 (83.0-108.0) mmHg HCO3 (21.0-28.0) mmol/L Base Excess (-2.0-3.0) mmol/L ABG O2 Sat (Measured) (94.0-98.0) % Potassium (3.4-4.6) mmol/L Random Glucose (70-110) mg/dL Ferritin 413 H (8-252) ng/mL C-Reactive Prot, Quant 13.7 H (0.0-0.9) mg/dL Albumin (3.4-5.0) gm/dl Procalcitonin (0.05-0.50) ng/mL SARS-CoV-2 (PCR) Detected H (ND) 05/20/20 05/20/20 05/20/20 Range/Units 13:24 13:30 13:30 Immature Gran % (Auto) 0.90 H (0.001-0.429) % Immature Gran # (Auto) 0.04 H (0.000-0.0310) K/mm3 Monocytes % 9.3 H (0.0-9) % Lymphocytes # 1.36 L (1.5-3.5) k/mm3 D-Dimer (0.19-0.49) ug/mL pCO2 (32.0-45.0) mmHg pO2 (83.0-108.0) mmHg HCO3 (21.0-28.0) mmol/L Base Excess (-2.0-3.0) mmol/L ABG O2 Sat (Measured) (94.0-98.0) % Potassium 3.3 L (3.4-4.6) mmol/L Random Glucose 131 H (70-110) mg/dL Ferritin (8-252) ng/mL C-Reactive Prot, Quant (0.0-0.9) mg/dL Albumin 2.3 L (3.4-5.0) gm/dl Procalcitonin Less than 0.05 L (0.05-0.50) ng/mL SARS-CoV-2 (PCR) (ND) 05/20/20 Range/Units 16:35 Immature Gran % (Auto) (0.001-0.429) % Immature Gran # (Auto) (0.000-0.0310) K/mm3 Monocytes % (0.0-9) % Lymphocytes # (1.5-3.5) k/mm3 D-Dimer (0.19-0.49) ug/mL pCO2 29.9 L (32.0-45.0) mmHg pO2 64.0 L (83.0-108.0) mmHg HCO3 20.0 L (21.0-28.0) mmol/L Base Excess -3.0 L (-2.0-3.0) mmol/L ABG O2 Sat (Measured) 93.5 L (94.0-98.0) % Potassium (3.4-4.6) mmol/L Random Glucose (70-110) mg/dL Ferritin (8-252) ng/mL C-Reactive Prot, Quant (0.0-0.9) mg/dL Albumin (3.4-5.0) gm/dl Procalcitonin (0.05-0.50) ng/mL SARS-CoV-2 (PCR) (ND) Laboratory Results WBC 4.4 K/mm3 (4.0-10.5) 05/20/20 13:30 RBC 4.60 M/mm3 (4.2-5.4) 05/20/20 13:30 Hgb 13.4 gm/dL (12.5-16.0) 05/20/20 13:30 Hct 40.5 % (37.0-47.0) 05/20/20 13:30 MCV 88.0 fl (78-100) 05/20/20 13:30 MCH 29.1 pg (27-31) 05/20/20 13:30 MCHC 33.1 g/dl (32-36) 05/20/20 13:30 RDW 13.7 % (11.5-14.0) 05/20/20 13:30 Plt Count 164 K/mm3 (150-450) 05/20/20 13:30 MPV 9.5 fl (8-12.5) 05/20/20 13:30 Immature Gran % (Auto) 0.90 % (0.001-0.429) H 05/20/20 13:30 Immature Gran # (Auto) 0.04 K/mm3 (0.000-0.0310) H 05/20/20 13:30 Neutrophils % 57.9 % (42-75.0) 05/20/20 13:30 Lymphocytes % 30.8 % (20-51) 05/20/20 13:30 Monocytes % 9.3 % (0.0-9) H 05/20/20 13:30 Eosinophils % 0.9 % (0.0-3.0) 05/20/20 13:30 Basophils % 0.2 % (0.0-1.0) 05/20/20 13:30 Nucleated RBC % 0.0 k/mm3 (0-1) 05/20/20 13:30 Neutrophils # 2.6 K/mm3 (1.3-6.0) 05/20/20 13:30 Lymphocytes # 1.36 k/mm3 (1.5-3.5) L 05/20/20 13:30 Monocytes # 0.4 k/mm3 (0.0-1.0) 05/20/20 13:30 Eosinophils # 0.0 k/mm3 (0.0-0.7) 05/20/20 13:30 Absolute Basophils 0.0 k/mm3 (0.0-0.1) 05/20/20 13:30 D-Dimer 0.76 ug/mL (0.19-0.49) H 05/20/20 13:24 pCO2 29.9 mmHg (32.0-45.0) L 05/20/20 16:35 pO2 64.0 mmHg (83.0-108.0) L 05/20/20 16:35 HCO3 20.0 mmol/L (21.0-28.0) L 05/20/20 16:35 Total CO2 20.9 mmol/L (19.0-24.0) 05/20/20 16:35 Base Excess -3.0 mmol/L (-2.0-3.0) L 05/20/20 16:35 ABG pH 7.44 (7.35-7.45) 05/20/20 16:35 ABG O2 Sat (Measured) 93.5 % (94.0-98.0) L 05/20/20 16:35 Sodium 136 mmol/L (132-142) 05/20/20 13:30 Plasma Sodium 136 mmol/L (130-142) 05/20/20 13:30 Potassium 3.3 mmol/L (3.4-4.6) L 05/20/20 13:30 Chloride 101 mmol/L (97-106) 05/20/20 13:30 Carbon Dioxide 31.4 mmol/L (24-32.6) 05/20/20 13:30 Anion Gap 6.9 mmol/L (6.8-13.8) 05/20/20 13:30 BUN 9 mg/dL (3-23) 05/20/20 13:30 Creatinine 0.74 mg/dL (0.4-1.4) 05/20/20 13:30 Est GFR (Non-Af Amer) 84 mL/min (60-130) 05/20/20 13:30 BUN/Creatinine Ratio 12.2 (9.0-21.6) 05/20/20 13:30 Random Glucose 131 mg/dL (70-110) H 05/20/20 13:30 Calcium 8.4 mg/dL (7.9-10.9) 05/20/20 13:30 Calcium Adj for Albumin 9.4 mg/dL (8.4-10.2) 05/20/20 13:30 Ferritin 413 ng/mL (8-252) H 05/20/20 13:24 Total Bilirubin 0.4 mg/dL (0.0-1.1) 05/20/20 13:30 AST 39 U/L (0-48) 05/20/20 13:30 ALT 32 U/L (19-67) 05/20/20 13:30 Alkaline Phosphatase 77 U/L (50-170) 05/20/20 13:30 Creatine Kinase 60 U/L (0-259) 05/20/20 13:30 Troponin I Less than 0.017 ng/mL (0.00-0.10) 05/20/20 13:30 C-Reactive Prot, Quant 13.7 mg/dL (0.0-0.9) H 05/20/20 13:24 Total Protein 6.2 gm/dL (6.2-8.2) 05/20/20 13:30 Albumin 2.3 gm/dl (3.4-5.0) L 05/20/20 13:30 Procalcitonin Less than 0.05 ng/mL (0.05-0.50) L 05/20/20 13:24 Urine Color Yellow 05/20/20 13:32 Urine Appearance Clear (CLEAR) 05/20/20 13:32 Urine pH 7.0 pH (5.0-7.0) 05/20/20 13:32 Ur Specific [place] 1.015 SP.GR. (1.005-1.010) 05/20/20 13:32 Urine Protein Negative mg/dL (NEGATIVE) 05/20/20 13:32 Urine Glucose (UA) Negative mg/dL (NEGATIVE) 05/20/20 13:32 Urine Ketones 15 mg/dL (NEGATIVE) 05/20/20 13:32 Urine Blood Negative /ul (NEGATIVE) 05/20/20 13:32 Urine Nitrate Negative (NEGATIVE) 05/20/20 13:32 Urine Bilirubin Negative mg/dl (NEGATIVE) 05/20/20 13:32 Urine Urobilinogen Normal EU/dl (NORMAL) 05/20/20 13:32 Ur Leukocyte Esterase Negative /ul (NEGATIVE) 05/20/20 13:32 Urine RBC None seen /hpf (0-5) 05/20/20 13:32 Urine WBC None seen /hpf (0-5) 05/20/20 13:32 Ur Epithelial Cells 0-5 /hpf (0-5) 05/20/20 13:32 Urine Bacteria None seen (NONE) 05/20/20 13:32 Urine Culture Comments No culture indicated 05/20/20 13:32 Chlamy pneumoniae PCR Not detected (NotDetected) 05/20/20 13:24 Adenovirus (PCR) Not detected (NotDetected) 05/20/20 13:24 B. pertussis DNA (PCR) Not detected (NotDetected) 05/20/20 13:24 B.parapertussis DNA PCR Not detected (NotDetected) 05/20/20 13:24 Coronavirus OC43 (PCR) Not detected (NotDetected) 05/20/20 13:24 Coronavirus HKU1 (PCR) Not detected (NotDetected) 05/20/20 13:24 Coronavirus 229E (PCR) Not detected (NotDetected) 05/20/20 13:24 Coronavirus NL63 (PCR) Not detected (NotDetected) 05/20/20 13:24 Human Metapneumovir PCR Not detected (NotDetected) 05/20/20 13:24 Influenza A (RT-PCR) Not detected (NotDetected) 05/20/20 13:24 Influenza A (H1) PCR Not detected (NotDetected) 05/20/20 13:24 Influenza A (H1N1) PCR Not detected (NotDetected) 05/20/20 13:24 Influenza A (H3) PCR Not detected (NotDetected) 05/20/20 13:24 Influenza A Untype (PCR) Not detected (NotDetected) 05/20/20 13:24 Influenza B (RT-PCR) Not detected (NotDetected) 05/20/20 13:24 M. pneumoniae (PCR) Not detected (NotDetected) 05/20/20 13:24 Parainfluenza 1 (PCR) Not detected (NotDetected) 05/20/20 13:24 Parainfluenza 2 (PCR) Not detected (NotDetected) 05/20/20 13:24 Parainfluenza 3 (PCR) Not detected (NotDetected) 05/20/20 13:24 Parainfluenza 4 (PCR) Not detected (NotDetected) 05/20/20 13:24 RSV (PCR) Not detected (NotDetected) 05/20/20 13:24 Rhinovirus (PCR) Not detected (NotDetected) 05/20/20 13:24 SARS-CoV-2 (PCR) Detected (ND) H 05/20/20 13:24
[2020-05-20] MEDS ORDERED: METHYLPREDNISOLONE SOD SUCC/PF 40 MG/ML VIAL IV ONE (17:30)
[2020-05-21] MEDS: GLIMEPIRIDE 2 MG TABLET PO SCH (07:08)
[2020-05-21] MEDS: LEVOTHYROXINE SODIUM 150 MCG TABLET PO SCH (07:08)
[2020-05-21 07:32] LABS: Hematocrit 43.2 % (37.0-47.0); Hemoglobin 14.2 gm/dL (12.5-16.0); Mean Cell Volume 87.8 fl (78-100); Mean Corpuscular Hemoglobin 28.9 pg (27-31); Mean Corpuscular Hgb Conc 32.9 g/dl (32-36); Mean Platelet Volume 9.5 fl (8-12.5); Neutrophil # 1.3 K/mm3 (1.3-6.0); Neutrophil % 54.7 % (42-75.0); Platelet Count 179 K/mm3 (150-450); Red Blood Count 4.92 M/mm3 (4.2-5.4); Red Cell Distribution Width 13.5 % (11.5-14.0); White Blood Count 2.4 K/mm3 (4.0-10.5)
[2020-05-21 07:47] LABS: Albumin * 2.2 gm/dl (3.4-5.0); Anion Gap 17.9 mmol/L (6.8-13.8); BUN/Creatinine Ratio 16.7 (9.0-21.6); Bilirubin, Total 0.6 mg/dL (0.0-1.1); Ca. Corrected For Albumin 9.4 mg/dL (8.4-10.2); Calcium * 8.3 mg/dL (7.9-10.9); Carbon Dioxide 20.8 mmol/L (24-32.6); Potassium 4.7 mmol/L (3.4-4.6); Total Protein 6.7 gm/dL (6.2-8.2)
[2020-05-21] MEDS: METOPROLOL SUCCINATE 25 MG TABLET.SA PO SCH (08:36)
[2020-05-21] MEDS ORDERED: ACETAMINOPHEN WITH CODEINE 1 EACH TABLET PO PRN (09:44)
[2020-05-21] MEDS: ACETAMINOPHEN 500 MG TABLET PO PRN ×3 (11:04→22:38)
[2020-05-21] MEDS: DENTAL ADHESIVE 39 APPL TUBE TP SCH (14:34)
--- NOTE | 2020-05-21 17:44 | PN ---
Subjective - Date and Time Seen Date: 05/21/20 Time: 09:10 Subjective Narrative: Kendy is much better this morning. She was admitted last night after dropping her saturations into the upper 80s, her respiratory rate increasing to the mid 30s, having a syncopal event in ER that I witnessed, and having marked weakness and muscle soreness from having been on the floor for nearly 2 days. Her is not doing well at the [facility]. He has COVID-19 and they were about to put him on a ventilator. She is quite emotionally distraught about that. This morning her sats on room air are in the upper 90s percent. Her respiratory rate is in the teens. Her other vital signs are normal. She is complaining mostly of muscle soreness. Unfortunately she has had an anaphylactic reaction to codeine, she tells me she cannot take morphine, because of being COVID positive I do not think she should be on NSAIDs such as Toradol and because of her seizure history she cannot take tramadol. Therefore, about the only safe medicine for her seems to be acetaminophen which I will allow at 1 g 4 times daily as needed pain. Her repeat lab this morning is improved. The white count has dropped to normal range. The chest x-ray looks a little worse than it did on admission yesterday but she sounds better and is ventilating much better. Steroids seem to have made a big difference in her status. Physical therapy will not be seeing her because of her COVID positive status and so assessing her mobility and independence is difficult. I will have nursing get her up and try to walk her in the room to see how she does with strength and balance. She does not have much appetite and is typical her smelling and taste are distorted. There are no vascular signs. Her blood sugars did go up to 193 this morning and most likely is steroid influenced. She is complaining of a sore throat and right otalgia. Examination of the EAC and TMs bilaterally are normal. I do not see any abnormalities of the oral cavity or the pharynx. She has some tenderness in the right cervical lymph nodes I suspect that her ear pain is referred from that. She is on a azithromycin. Objective - Review of Systems Generalized/Overall Review: Reports: Weakness, Malaise, Fatigue EENTM: Reports: Ear Pain, Throat Pain Respiratory: Reports: Cough, Shortness of Breath Cardiac: Reports: No Symptoms Reported. Denies: Edema, Palpitations Abdominal: Reports: No Symptoms Reported, Other - She is anorexic Genitourinary Symptoms: Reports: No Symptoms Reported Musculoskeletal Complaints: Reports: Muscle Pain Neurological: Reports: Weakness Skin: Reports: No Symptoms Reported Endocrine: Reports: No Symptoms Reported Misc: All systems neg except as marked - Vitals Vitals: Last Vital Signs Temp 37.0 C 05/21/20 15:07 Pulse 67 05/21/20 15:07 Resp 26 H 05/21/20 15:07 BP 156/96 H 05/21/20 15:07 Pulse Ox 97 05/21/20 15:07 - Abnormal Lab Findings Abnormal Lab Findings: Abnormal Lab Results 05/21/20 05/21/20 Range/Units 07:15 07:15 WBC 2.4 L D (4.0-10.5) K/mm3 Immature Gran % (Auto) 2.10 H (0.001-0.429) % Immature Gran # (Auto) 0.05 H (0.000-0.0310) K/mm3 Lymphocytes # 0.88 L (1.5-3.5) k/mm3 Potassium 4.7 H D (3.4-4.6) mmol/L Carbon Dioxide 20.8 L (24-32.6) mmol/L Anion Gap 17.9 H (6.8-13.8) mmol/L Est GFR (Non-Af Amer) 138 H D (60-130) mL/min Random Glucose 198 H D (70-110) mg/dL AST 61 H (0-48) U/L Albumin 2.2 L (3.4-5.0) gm/dl - EKG/Xray Findings XRAY: chest Interpretation: Reviewed by me - Exam Constitutional: Present: Alert, Oriented x3, Cooperative, Well developed, Well nourished ENT Exam: Present: normal ENT inspection, hearing grossly normal, pharynx normal, TMs normal Neck: Present: lymphadenopathy (R) Breasts: Present: Exam deferred Respiratory: Present: chest non-tender, normal breath sounds, rhonchi Cardiovascular/Chest: Present: normal peripheral pulses, regular rate, rhythm, no chest tenderness, no edema, no gallop, no JVD, no murmur, no rub Abdomen: Present: Normal bowel sounds, soft, nontender, nondistended, no rebound tenderness, no hepatospenomegaly, no masses /Rectal: Present: Exam deferred, External genitalia normal Extremity: Present: normal range of motion, non-tender, normal inspection, no pedal edema, no calf tenderness, normal capillary refill Skin Exam: Present: normal color, warm/dry, no cyanosis Lymphatic: Present: other - Right cervical adenitis 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 Progress activity as tolerated. Allow acetaminophen Withhold further steroids unless she becomes symptomatic again due to her diabetes Progress diet as tolerated Monitor for syncopal events - Problems/Diagnosis (1) Lab test positive for detection of COVID-19 virus Problem: Acute (2) Pneumonia involving right lung Problem: Acute Qualifiers: Pneumonia type: due to unspecified organism Lung location: middle lobe of lung Qualified Code(s): J18.9 - Pneumonia, unspecified organism (3) Interstitial cystitis Problem: Chronic (4) Seizures Problem: Chronic (5) Syncope and collapse Problem: Acute
[2020-05-21] MEDS: INSULIN LISPRO 100 UNITS/ML VIAL SC SCH (20:25)
[2020-05-21] MEDS: ENOXAPARIN SODIUM 40 MG/0.4 ML SYRG SC SCH (20:26)
[2020-05-22 07:16] LABS: Hematocrit 42.2 % (37.0-47.0); Mean Cell Volume 85.8 fl (78-100); Mean Corpuscular Hemoglobin 28.5 pg (27-31); Mean Corpuscular Hgb Conc 33.2 g/dl (32-36); Mean Platelet Volume 9.2 fl (8-12.5); Neutrophil # 2.6 K/mm3 (1.3-6.0); Neutrophil % 52.2 % (42-75.0); Platelet Count 227 K/mm3 (150-450); Red Blood Count 4.92 M/mm3 (4.2-5.4); Red Cell Distribution Width 13.2 % (11.5-14.0)
[2020-05-22 07:29] LABS: Albumin * 2.4 gm/dl (3.4-5.0); Anion Gap 12.3 mmol/L (6.8-13.8); BUN/Creatinine Ratio 16.9 (9.0-21.6); Calcium * 8.7 mg/dL (7.9-10.9); Carbon Dioxide 27.1 mmol/L (24-32.6); Potassium 3.4 mmol/L (3.4-4.6); Total Protein 6.4 gm/dL (6.2-8.2)
[2020-05-22 07:30] LABS: Bilirubin, Total 0.5 mg/dL (0.0-1.1); Ca. Corrected For Albumin 9.7 mg/dL (8.4-10.2)
[2020-05-22] MEDS: INSULIN LISPRO 100 UNITS/ML VIAL SC SCH ×3 (07:48→17:39)
[2020-05-22] MEDS: GLIMEPIRIDE 2 MG TABLET PO SCH (07:49)
[2020-05-22] MEDS: LEVOTHYROXINE SODIUM 150 MCG TABLET PO SCH (07:49)
[2020-05-22] MEDS: METOPROLOL SUCCINATE 25 MG TABLET.SA PO SCH ×2 (07:49→08:19)
[2020-05-22] MEDS: DENTAL ADHESIVE 39 APPL TUBE TP SCH (08:19)
--- NOTE | 2020-05-22 09:27 | PN ---
Subjective - Date and Time Seen Date: 05/22/20 Time: 08:30 Subjective Narrative: Kendy says that she is not feeling any differently this morning. She is still having quite a lot of pain and discomfort in her muscles and it seemed to get worse yesterday afternoon. Ice packs and Biofreeze were applied and that did help. She is very limited in what pain medicine she can take it because she has had anaphylactic reactions to codeine and tells me she cannot take morphine. She cannot take tramadol because of her seizure history and she cannot take Toradol because of her COVID infection. So she is taking Tylenol on a regular schedule. Vital signs this morning are normal at rest with a pulse of 78, respiration 20, BP is 139/76, O2 sats 96% on room air at rest but drops to 83% when she stands and walks in her room. She still gets very dyspneic and gets lightheaded when her oxygen falls. Lab: White count has improved to 5000 up from 2400 yesterday. Hemoglobin hematocrit are normal at 14 and 42.2% respectively. There is a increase in monocytes as expected. D-dimer was elevated at 0.76 on admission. Electrolytes are all within normal range. The potassium is at 3.4 today down from 4.7 yesterday. Her glucose this morning was 129. Yesterday afternoon it was 244 and yesterday evening was 253. We started her on a low range sliding scale of Humalog before meals. She received 3 units yesterday and the blood sugar is good this morning. She still has some steroid influence on her blood sugars I believe as she is not eating very much. Her liver function tests are all within normal range this morning. Her renal function tests are also normal. Chest x- ray is unchanged from yesterday and there remains a right middle lobe and left basilar pneumonia. I believe she will probably have to stay the weekend and she may require home oxygen. She is still too unstable when walking and desaturates very quickly to the point of dyspnea and lightheadedness. She will probably need to be discharged with home health as well. She does not have anybody locally that can check on her when she gets home. Objective - Review of Systems Generalized/Overall Review: Reports: Weakness, Malaise, Fatigue EENTM: Reports: Ear Pain, Throat Pain Respiratory: Reports: Cough - Which is now become productive, Shortness of Breath Cardiac: Reports: No Symptoms Reported Abdominal: Reports: No Symptoms Reported Genitourinary Symptoms: Reports: No Symptoms Reported Musculoskeletal Complaints: Reports: Muscle Pain - From being on the floor for nearly 2 days., Other - Generalized muscle weakness Neurological: Reports: Weakness, Other - She has a history of seizures Skin: Reports: No Symptoms Reported Endocrine: Reports: No Symptoms Reported - Vitals Vitals: Last Vital Signs Temp 36.8 C 05/22/20 02:00 Pulse 78 05/22/20 07:49 Resp 20 05/22/20 02:00 BP 139/76 05/22/20 07:49 Pulse Ox 96 05/22/20 02:00 - Abnormal Lab Findings Abnormal Lab Findings: Abnormal Lab Results 05/22/20 05/22/20 Range/Units 07:08 07:08 Immature Gran % (Auto) 1.20 H (0.001-0.429) % Immature Gran # (Auto) 0.06 H (0.000-0.0310) K/mm3 Monocytes % 12.3 H (0.0-9) % Random Glucose 129 H D (70-110) mg/dL Albumin 2.4 L (3.4-5.0) gm/dl - EKG/Xray Findings XRAY: chest Interpretation: Reviewed by me - Exam Constitutional: Present: Alert, Oriented x3, Cooperative, Well developed, Well nourished, Moderate distress, Elderly, Looks Older than stated age ENT Exam: Present: normal ENT inspection, hearing grossly normal, pharynx normal, TMs normal Neck: Present: non-tender, full range of motion, supple, normal inspection Breasts: Present: Exam deferred Respiratory: Present: rhonchi Cardiovascular/Chest: Present: normal peripheral pulses, regular rate, rhythm, no chest tenderness, no edema, no gallop, no JVD, no murmur, no rub Abdomen: Present: Normal bowel sounds, soft, nontender, nondistended /Rectal: Present: Exam deferred Extremity: Present: normal range of motion, non-tender, normal inspection, no pedal edema, no calf tenderness, normal capillary refill Skin Exam: Present: normal color, warm/dry, no cyanosis Lymphatic: Present: no adenopathy 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 Add Combivent inhaler 2 puffs 4 times a day 2. Offer Tylenol 1000 mg 4 times daily to stay ahead of her pain 3. Continue the Biofreeze, ice packs, hot wet packs for muscle pain 4. Dr. Santamaria to manage during the weekend. - Problems/Diagnosis (1) Lab test positive for detection of COVID-19 virus Problem: Acute (2) Pneumonia involving right lung Problem: Acute Qualifiers: Pneumonia type: due to unspecified organism Lung location: middle lobe of lung Qualified Code(s): J18.9 - Pneumonia, unspecified organism (3) Interstitial cystitis Problem: Chronic (4) Seizures Problem: Chronic (5) Syncope and collapse Problem: Acute
[2020-05-22] MEDS: ACETAMINOPHEN 500 MG TABLET PO PRN ×2 (10:18→20:48)
[2020-05-22] MEDS: IPRATROPIUM/ALBUTEROL SULFATE 120 PUFF INHALER IH SCH ×3 (13:18→22:42)
[2020-05-22] MEDS: ENOXAPARIN SODIUM 40 MG/0.4 ML SYRG SC SCH (20:42)
[2020-05-23] MEDS: IPRATROPIUM/ALBUTEROL SULFATE 120 PUFF INHALER IH SCH ×4 (05:18→22:48)
[2020-05-23 06:57] LABS: Hematocrit 43.5 % (37.0-47.0); Hemoglobin 14.2 gm/dL (12.5-16.0); Mean Cell Volume 86.7 fl (78-100); Mean Corpuscular Hemoglobin 28.3 pg (27-31); Mean Corpuscular Hgb Conc 32.6 g/dl (32-36); Mean Platelet Volume 9.2 fl (8-12.5); Neutrophil # 3.8 K/mm3 (1.3-6.0); Neutrophil % 62.2 % (42-75.0); Platelet Count 214 K/mm3 (150-450); Red Blood Count 5.02 M/mm3 (4.2-5.4); Red Cell Distribution Width 13.3 % (11.5-14.0)
[2020-05-23 07:08] LABS: Albumin * 2.3 gm/dl (3.4-5.0); Anion Gap 12.8 mmol/L (6.8-13.8); BUN/Creatinine Ratio 13.1 (9.0-21.6); Bilirubin, Total 0.5 mg/dL (0.0-1.1); Ca. Corrected For Albumin 9.4 mg/dL (8.4-10.2); Calcium * 8.4 mg/dL (7.9-10.9); Carbon Dioxide 26.6 mmol/L (24-32.6); Potassium 3.4 mmol/L (3.4-4.6); Total Protein 6.4 gm/dL (6.2-8.2)
[2020-05-23] MEDS: INSULIN LISPRO 100 UNITS/ML VIAL SC SCH ×3 (08:57→17:03)
[2020-05-23] MEDS: LEVOTHYROXINE SODIUM 150 MCG TABLET PO SCH (09:05)
[2020-05-23] MEDS: DENTAL ADHESIVE 39 APPL TUBE TP SCH (09:05)
[2020-05-23] MEDS: METOPROLOL SUCCINATE 25 MG TABLET.SA PO SCH (09:05)
[2020-05-23] MEDS: GLIMEPIRIDE 2 MG TABLET PO SCH (09:05)
[2020-05-23] MEDS: ACETAMINOPHEN 500 MG TABLET PO PRN (09:06)
--- NOTE | 2020-05-23 10:57 | PN ---
Subjective - Date and Time Seen Date: 05/23/20 Time: 10:52 Subjective Narrative: Patient feeling better with good O2 saturarion. Objective - Review of Systems Generalized/Overall Review: Denies: Weakness, Chills, Fever EENTM: Denies: Blurred Vision Respiratory: Reports: Cough, Shortness of Breath. Denies: Wheezing Cardiac: Denies: Chest Pain, Edema, Palpitations Abdominal: Denies: Nausea, Vomiting Genitourinary Symptoms: Denies: Urgency, Frequency Musculoskeletal Complaints: Denies: Joint Pain Neurological: Denies: Headache Skin: Denies: Lesions, Rash - Vitals Vitals: Last Vital Signs Temp 36.8 C 05/23/20 07:00 Pulse 85 05/23/20 09:05 Resp 18 05/23/20 07:00 BP 152/74 H 05/23/20 09:05 Pulse Ox 99 05/23/20 07:00 - Abnormal Lab Findings Abnormal Lab Findings: Abnormal Lab Results 05/23/20 05/23/20 Range/Units 06:30 06:30 Immature Gran % (Auto) 1.20 H (0.001-0.429) % Immature Gran # (Auto) 0.07 H (0.000-0.0310) K/mm3 Monocytes % 11.3 H (0.0-9) % Lymphocytes # 1.49 L (1.5-3.5) k/mm3 Random Glucose 129 H (70-110) mg/dL Albumin 2.3 L (3.4-5.0) gm/dl - Exam Constitutional: Present: Alert, Oriented x3, Cooperative, Obese ENT Exam: Present: hearing grossly normal Neck: Present: supple. Absent: lymphadenopathy (R), lymphadenopathy (L) Respiratory: Present: decreased breath sounds, No rales, No wheezing Cardiovascular/Chest: Present: regular rate, rhythm, no JVD, no murmur Abdomen: Present: Normal bowel sounds, soft, nontender, nondistended Extremity: Present: no pedal edema, no calf tenderness Assessment/Plan Plan Narrative: Patient is feeling less of breath but SOB is increased with exertion. Will start patient on IV antibiotics as working diagnosis is Pneumonia. will get bc X 2. - Problems/Diagnosis (1) Lab test positive for detection of COVID-19 virus Problem: Acute (2) Pneumonia involving right lung Problem: Acute Qualifiers: Pneumonia type: due to unspecified organism Lung location: middle lobe of lung Qualified Code(s): J18.9 - Pneumonia, unspecified organism (3) Syncope and collapse Problem: Resolved (4) Seizures Problem: Resolved
[2020-05-23] MEDS: AZITHROMYCIN 250 MG TABLET PO SCH (11:44)
[2020-05-23] MEDS: ONDANSETRON HCL/PF 2 MG/ML VIAL IV PRN ×2 (16:48→22:48)
[2020-05-23] MEDS: PANTOPRAZOLE SODIUM 40 MG in NORMAL SALINE 100 ML IV SCH (16:56)
[2020-05-23] MEDS: ENOXAPARIN SODIUM 40 MG/0.4 ML SYRG SC SCH (20:26)
[2020-05-23] MEDS: ALPRAZolam 1 MG TABLET PO SCH (20:26)
[2020-05-24] MEDS: IPRATROPIUM/ALBUTEROL SULFATE 120 PUFF INHALER IH SCH ×4 (04:41→22:05)
[2020-05-24] MEDS: ONDANSETRON HCL/PF 2 MG/ML VIAL IV PRN ×2 (07:00→20:09)
[2020-05-24] MEDS: LEVOTHYROXINE SODIUM 150 MCG TABLET PO SCH (07:25)
[2020-05-24] MEDS: AZITHROMYCIN 250 MG TABLET PO SCH (08:07)
[2020-05-24] MEDS: INSULIN LISPRO 100 UNITS/ML VIAL SC SCH ×3 (08:07→17:04)
[2020-05-24] MEDS: GLIMEPIRIDE 2 MG TABLET PO SCH (08:07)
[2020-05-24] MEDS: METOPROLOL SUCCINATE 25 MG TABLET.SA PO SCH (08:07)
[2020-05-24] MEDS: DENTAL ADHESIVE 39 APPL TUBE TP SCH (08:07)
[2020-05-24] MEDS: ACETAMINOPHEN 500 MG TABLET PO PRN (09:31)
[2020-05-24] MEDS ORDERED: MAGNESIUM CITRATE 300 ML BTL PO ONE (12:20)
[2020-05-24] MEDS: ALPRAZolam 0.25 MG TABLET PO PRN ×2 (12:29→23:36)
--- NOTE | 2020-05-24 12:31 | PN ---
Subjective - Date and Time Seen Date: 05/24/20 Time: 12:24 Subjective Narrative: Patient got a call from [place] that her is going to be intubated . he also has the Covid. She is crying. Objective - Review of Systems Generalized/Overall Review: Denies: Chills, Fever EENTM: Denies: Blurred Vision Respiratory: Reports: Cough, Shortness of Breath. Denies: Wheezing Cardiac: Denies: Chest Pain, Edema, Palpitations Abdominal: Denies: Nausea, Vomiting, Abdominal Pain Genitourinary Symptoms: Denies: Urgency, Frequency Musculoskeletal Complaints: Denies: Joint Pain Neurological: Reports: Anxiety. Denies: Headache Skin: Denies: Lesions, Rash Endocrine: Denies: Intolerance to Cold, Intolerance to Heat Misc: All systems neg except as marked - Vitals Vitals: Last Vital Signs Temp 36.3 C 05/24/20 07:22 Pulse 78 05/24/20 11:00 Resp 18 05/24/20 11:00 BP 157/72 H 05/24/20 11:00 Pulse Ox 98 05/24/20 11:00 - Exam Constitutional: Present: Alert, Oriented x3, Cooperative, Obese ENT Exam: Present: hearing grossly normal Neck: Present: supple. Absent: lymphadenopathy (R), lymphadenopathy (L) Respiratory: Present: decreased breath sounds, No rales, No wheezing Cardiovascular/Chest: Present: regular rate, rhythm, no JVD, no murmur Abdomen: Present: Normal bowel sounds, soft, nontender, nondistended Extremity: Present: no pedal edema, no calf tenderness Assessment/Plan Plan Narrative: Kendy is more anxious and sad with the news that her is going to be intubated. They have been together for 33 years. We did start her on alprazolam 1 mg p.o. nightly yesterday and will add 0.25 twice daily as needed for anxiety. She is also constipated and will give her mag citrate x1 and start her on Senokot-S daily. I will leave it up to her PCP who will be resuming her care tomorrow if he is going to start her on antidepressant as well. - Problems/Diagnosis (1) Lab test positive for detection of COVID-19 virus Problem: Acute (2) Pneumonia involving right lung Problem: Acute Qualifiers: Pneumonia type: due to unspecified organism Lung location: middle lobe of lung Qualified Code(s): J18.9 - Pneumonia, unspecified organism (3) Syncope and collapse Problem: Resolved (4) Seizures Problem: Resolved (5) Anxiety Problem: Chronic
[2020-05-24] MEDS: PANTOPRAZOLE SODIUM 40 MG in NORMAL SALINE 100 ML IV SCH (16:53)
[2020-05-24] MEDS: ALPRAZolam 1 MG TABLET PO SCH (20:09)
[2020-05-24] MEDS: ENOXAPARIN SODIUM 40 MG/0.4 ML SYRG SC SCH (20:09)
[2020-05-24] MEDS ORDERED: SENNOSIDES/DOCUSATE SODIUM 1 TAB TABLET PO SCH (21:00)
[2020-05-25] MEDS: ONDANSETRON HCL/PF 2 MG/ML VIAL IV PRN ×2 (02:38→09:20)
[2020-05-25] MEDS: IPRATROPIUM/ALBUTEROL SULFATE 120 PUFF INHALER IH SCH ×2 (04:11→11:44)
[2020-05-25 06:40] LABS: Hematocrit 41.6 % (37.0-47.0); Hemoglobin 13.7 gm/dL (12.5-16.0); Mean Cell Volume 86.3 fl (78-100); Mean Corpuscular Hemoglobin 28.4 pg (27-31); Mean Corpuscular Hgb Conc 32.9 g/dl (32-36); Neutrophil # 3.3 K/mm3 (1.3-6.0); Neutrophil % 62.6 % (42-75.0); Platelet Count 223 K/mm3 (150-450); Red Blood Count 4.82 M/mm3 (4.2-5.4); Red Cell Distribution Width 13.5 % (11.5-14.0); White Blood Count 5.2 K/mm3 (4.0-10.5)
[2020-05-25 06:50] LABS: Anion Gap 11.2 mmol/L (6.8-13.8); BUN/Creatinine Ratio 17.9 (9.0-21.6); Calcium * 8.3 mg/dL (7.9-10.9); Carbon Dioxide 27.3 mmol/L (24-32.6); Estimated Creat Clear 91.3; Potassium 3.5 mmol/L (3.4-4.6)
[2020-05-25] MEDS: GLIMEPIRIDE 2 MG TABLET PO SCH (07:32)
[2020-05-25] MEDS: LEVOTHYROXINE SODIUM 150 MCG TABLET PO SCH (07:33)
[2020-05-25] MEDS: INSULIN LISPRO 100 UNITS/ML VIAL SC SCH ×2 (07:33→11:44)
[2020-05-25] MEDS: METOPROLOL SUCCINATE 25 MG TABLET.SA PO SCH (09:19)
[2020-05-25] MEDS: AZITHROMYCIN 250 MG TABLET PO SCH (09:19)
[2020-05-25] MEDS: DENTAL ADHESIVE 39 APPL TUBE TP SCH (09:19)
[2020-05-25 11:43] VITALS: BP 134/76
--- NOTE | 2020-05-25 11:55 | DS ---
(1) Lab test positive for detection of COVID-19 virus Problem: Acute (2) Pneumonia involving right lung Problem: Acute Qualifiers: Pneumonia type: due to unspecified organism Lung location: middle lobe of lung Qualified Code(s): J18.9 - Pneumonia, unspecified organism (3) Interstitial cystitis Problem: Chronic (4) Seizures Problem: Chronic (5) Syncope and collapse Problem: Resolved Date of Discharge:: 05/25/20 Hospital Course: Kendy Oleary is a 64-year-old female patient of [facility] who presented to our emergency room after having been found on the floor at her home where she had been for 24 to 48 hours. She is very weak and had a lot of muscle soreness. In her work-up in the emergency room she was found to be COVID-19 detected. At rest initially her O2 sats were in the upper 90s and her respiratory rate was in the low 20s. However while in the emergency room her condition worsened, her respiratory rate went into the mid 30s, and her oxygen saturation dropped to 88%. She is placed on nasal cannula O2 which brought her oxygen level back up into the upper 90s. Chest x-ray revealed presence of a right middle lobe pneumonia and a left basilar pneumonia. Her laboratory work initially showed a low white count, elevated platelets, and the appearance of dehydration. She was rehydrated and her electrolytes blood count and platelets have been normal since then. The follow-up chest x-ray showed worsening on day 2 and stability on day 3 and it has not been x-rayed since then. She had improved by Monday but when she would get up and walk her O2 sat would drop back down into the low 80s and then with rest it would come back up into the 90s. She was still too weak and still having episodes of hypoxia with minor exertion and therefore did not meet discharge criteria. She has improved through the we ekend and is no longer desaturating when she is walking around in her room. She remains in the upper 90s at all times now. She is feeling better and having less muscle soreness. She has had some nausea and one episode of vomiting and her appetite is not good but she has been eating some. She has 1 dose of a azithromycin left. Her IV infiltrated this morning and was not restarted. Her pantoprazole and Rocephin were both changed to oral medicines including Ceftin ear and pantoprazole. I discussed with her the option of going to the [facility] in [place] which initially she was in favor of until she found out she may have to pay for the hospital ambulance transfer. She thinks that with her meals being prepared and delivered to her which friends will do and with the use of her walker that she has at home she will be able to function there. She is requesting home health and that will be arranged for. Today's vital signs show temperature is 37.1 pulse is 77, BP is 142/74, re spiratory 18 and unlabored on room air, O2 sat is 98% on room air. Lab work shows a white count is normal at 5200. The hemoglobin and hematocrit are 13.7 g and 41.6% respectively. Platelets are normal. Chemistries show electrolytes are normal with sodium of 136, potassium 3.5, chloride 101, carbon dioxide 27.3 with a BUN and creatinine of 10 and 0.56 respectively with an EGFR of 136. Her blood sugar this morning is 141 and her albumin is low at 2.3. She will go home with home health per private vehicle today. I will have her follow-up with Tiffany Maynard in about 3 weeks. She should have another chest x- ray done in 2 weeks to show resolution. Her disposition is improved and her prognosis is good. [id number] for home health: Kendy Oleary is confined to home due to COVID-19 pneumonia, muscle weakness, and poor endurance. The need for chcf is to monitor oxygen saturations both at rest and walking, monitor lung sounds, monitor blood sugars and dietary compliance with her diabetes, education regarding COVID-19 and her pneumonia. The need for physical therapy is for limb strengthening, gait training, and improved endurance. I do not believe she needs occupational or speech therapy. The need for home health care skilled services is directly related to the time spent [id number] with Mrs. Oleary. Procedures Performed: none Results and Findings: Pending Mircobiology Results 05/23/20 11:30 Blood Blood Culture - Preliminary NO GROWTH 24 HOURS 05/23/20 11:30 Blood Blood Culture - Preliminary NO GROWTH 24 HOURS Lab Pending Results 05/20/20 13:24: SARS-CoV-2 (PCR) Detected H 05/20/20 13:24: Ferritin 413 H, C-Reactive Prot, Quant 13.7 H 05/20/20 13:24: D-Dimer 0.76 H 05/20/20 13:24: Procalcitonin Less than 0.05 L 05/20/20 13:24: Chlamy pneumoniae PCR Not detected, Adenovirus (PCR) Not detected, B. pertussis DNA (PCR) Not detected, B.parapertussis DNA PCR Not detected, Coronavirus OC43 (PCR) Not detected, Coronavirus HKU1 (PCR) Not detected, Coronavirus 229E (PCR) Not detected, Coronavirus NL63 (PCR) Not detected, Human Metapneumovir PCR Not detected, Influenza A (RT-PCR) Not d etected, Influenza A (H1) PCR Not detected, Influenza A (H1N1) PCR Not detected, Influenza A (H3) PCR Not detected, Influenza A Untype (PCR) Not detected, Influenza B (RT-PCR) Not detected, M. pneumoniae (PCR) Not detected, Parainfluenza 1 (PCR) Not detected, Parainfluenza 2 (PCR) Not detected, Parainfluenza 3 (PCR) Not detected, Parainfluenza 4 (PCR) Not detected, RSV (PCR) Not detected, Rhinovirus (PCR) Not detected 05/20/20 13:30: WBC 4.4, RBC 4.60, Hgb 13.4, Hct 40.5, MCV 88.0, MCH 29.1, MCHC 33.1, RDW 13.7, Plt Count 164, MPV 9.5, Immature Gran % (Auto) 0.90 H, Immature Gran # (Auto) 0.04 H, Neutrophils % 57.9, Lymphocytes % 30.8, Monocytes % 9.3 H, Eosinophils % 0.9, Basophils % 0.2, Nucleated RBC % 0.0, Neutrophils # 2.6, Lymphocytes # 1.36 L, Monocytes # 0.4, Eosinophils # 0.0, Absolute Basophils 0.0 05/20/20 13:30: Sodium 136, Plasma Sodium 136, Potassium 3.3 L, Chloride 101, Carbon Dioxide 31.4, Anion Gap 6.9, BUN 9, Creatinine 0.74, Est GFR (Non-Af Amer) 84, BUN/Creatinine Ratio 12.2, Random Glucose 131 H, Calcium 8.4, Calcium Adj for Albumin 9.4, Total Bilirubin 0.4, AST 39, ALT 32, Alkaline Phosphatase 77, Creatine Kinase 60, Troponin I Less than 0.017, Total Protein 6.2, Albumin 2.3 L 05/20/20 13:32: Urine Color Yellow, Urine Appearance Clear, Urine pH 7.0, Ur Specific [place] 1.015, Urine Protein Negative, Urine Glucose (UA) Negative, Urine Ketones 15, Urine Blood Negative, Urine Nitrate Negative, Urine Bilirubin Negative, Urine Urobilinogen Normal, Ur Leukocyte Esterase Negative, Urine RBC None seen, Urine WBC None seen, Ur Epithelial Cells 0-5, Urine Bacteria None seen, Urine Culture Comments No culture indicated 05/20/20 16:35: pCO2 29.9 L, pO2 64.0 L, HCO3 20.0 L, Total CO2 20.9, Base Excess -3.0 L, ABG pH 7.44, ABG O2 Sat (Measured) 93.5 L 05/21/20 07:15: WBC 2.4 L D, RBC 4.92, Hgb 14.2, Hct 43.2, MCV 87.8, MCH 28.9, MCHC 32.9, RDW 13.5, Plt Count 179, MPV 9.5, Immature Gran % (Auto) 2.10 H, Immature Gran # (Auto) 0.05 H, Neutrophils % 54.7, Lymphocytes % 37.3, Monocytes % 4.7, Eosinophils % 0.4, Basophils % 0.8, Nucleated RBC % 0.0, Neutrophils # 1.3, Lymphocytes # 0.88 L, Monocytes # 0.1, Eosinophils # 0.0, Absolute Basophils 0.0 05/21/20 07:15: Sodium 132, Plasma Sodium 134, Potassium 4.7 H D, Chloride 98, Carbon Dioxide 20.8 L, Anion Gap 17.9 H, BUN 8, Creatinine 0.48, Est GFR (Non-Af Amer) 138 H D, BUN/Creatinine Ratio 16.7, Random Glucose 198 H D, Calcium 8.3, Calcium Adj for Albumin 9.4, Total Bilirubin 0.6, AST 61 H, ALT 37, Alkaline Phosphatase 89, Total Protein 6.7, Albumin 2.2 L 05/22/20 07:08: WBC 5.0 D, RBC 4.92, Hgb 14.0, Hct 42.2, MCV 85.8, MCH 28.5, MCHC 33.2, RDW 13.2, Plt Count 227, MPV 9.2, Immature Gran % (Auto) 1.20 H, Immature Gran # (Auto) 0.06 H, Neutrophils % 52.2, Lymphocytes % 33.7, Monocytes % 12.3 H, Eosinophils % 0.2, Basophils % 0.4, Nucleated RBC % 0.0, Neutrophils # 2.6, Lymphocytes # 1.67, Monocytes # 0.6, Eosinophils # 0.0, Absolute Basophils 0.0 05/22/20 07:08: Sodium 136, Plasma Sodium 136, Potassium 3.4 D, Chloride 100, Carbon Dioxide 27.1, Anion Gap 12.3, BUN 11, Creatinine 0.65, Est GFR (Non-Af Amer) 98 D, BUN/Creatinine Ratio 16.9, Random Glucose 129 H D, Calcium 8.7, Calcium Adj for Albumin 9.7, Total Bilirubin 0.5, AST 34, ALT 33, Alkaline Phosphatase 79, Total Protein 6.4, Albumin 2.4 L 05/23/20 06:30: WBC 6.0, RBC 5.02, Hgb 14.2, Hct 43.5, MCV 86.7, MCH 28.3, MCHC 32.6, RDW 13.3, Plt Count 214, MPV 9.2, Immature Gran % (Auto) 1.20 H, Immature Gran # (Auto) 0.07 H, Neutrophils % 62.2, Lymphocytes % 24.7, Monocytes % 11.3 H, Eosinophils % 0.3, Basophils % 0.3, Nucleated RBC % 0.0, Neutrophils # 3.8, Lymphocytes # 1.49 L, Monocytes # 0.7, Eosinophils # 0.0, Absolute Basophils 0.0 05/23/20 06:30: Sodium 135, Plasma Sodium 135, Potassium 3.4, Chloride 99, Carbon Dioxide 26.6, Anion Gap 12.8, BUN 8, Creatinine 0.61, Est GFR (Non-Af Amer) 105, BUN/Creatinine Ratio 13.1, Random Glucose 129 H, Calcium 8.4, Calcium Adj for Albumin 9.4, Total Bilirubin 0.5, AST 31, ALT 34, Alkaline Phosphatase 78, Total Protein 6.4, Albumin 2.3 L 05/25/20 06:30: WBC 5.2, RBC 4.82, Hgb 13.7, Hct 41.6, MCV 86.3, MCH 28.4, MCHC 32.9, RDW 13.5, Plt Count 223, MPV 9.0, Immature Gran % (Auto) 1.20 H, Immature Gran # (Auto) 0.06 H, Neutrophils % 62.6, Lymphocytes % 25.9, Monocytes % 8.6, Eosinophils % 1.5, Basophils % 0.2, Nucleated RBC % 0.0, Neutrophils # 3.3, Lymphocytes # 1.35 L, Monocytes # 0.5, Eosinophils # 0.1, Absolute Basophils 0.0 05/25/20 06:30: Sodium 136, Plasma Sodium 137, Potassium 3.5, Chloride 101, Carbon Dioxide 27.3, Anion Gap 11.2, BUN 10, Creatinine 0.56, Est GFR (Non-Af Amer) 116, BUN/Creatinine Ratio 17.9, Random Glucose 141 H, Calcium 8.3 Discharge Location: Home Disposition: [facility] Home Health Agency: [facility] Condition: Serious Face to Face Encounter completed per [facility] Guidelines: Yes - For home health Discharge Activity: Activity as tolerated Discharge Diet: Consistent carbs Group Home Therapy: Physical Therapy Additional Patient Instructions (free text): [facility] Home Health new at discharge- fax discharge instructions and medications and call report. Follow-up with her primary care provider whom she says is Tiffany Maynard in about 3 weeks. Repeat chest x-ray in 2 weeks Complete Home Medications List: Complete Home Medication List: ALPRAZolam [Xanax] 1 mg PO HS 04/05/18 Levothyroxine Sodium [Synthroid] 150 mcg PO DAILY 04/05/18 Metoprolol Succinate [Toprol Xl] 25 mg PO DAILY 04/05/18 Glimepiride [Amaryl] 2 mg PO DAILY 07/06/19 Walker [Elier Zhao Walker] 1 ea [facility] DAILY #1 ea 03/19/20 Acetaminophen [Tylenol] 1,000 mg PO Q6H PRN tab 05/25/20 Azithromycin [Zithromax] 250 mg PO DAILY #1 tab 05/25/20 Cefdinir [Omnicef] 300 mg PO BID #12 cap 05/25/20 Dental Adhesive [Fixodent Denture Adhesive] 1 appl TOPICAL DAILY tube 05/25/20 Ipratropium/Albuterol Sulfate [Combivent Respimat 20-100 mcg] 2 puff INHALATION N2AKNCE #1 inhaler 05/25/20 Pantoprazole Sodium [Protonix] 40 mg PO DAILY@0700 #30 tablet. 05/25/20 Sennosides/Docusate Sodium [Senokot-S] 1 tab PO HS #30 tab 05/25/20 Amb Orders for Discharge: Chest PA & Lateral * Time Frame: 2 Weeks, Facility: [facility], Location: Radiology Forms: Patient Portal Registration
[2020-05-25] MEDS ORDERED: CEFDINIR 300 MG CAPSULE PO SCH (21:00)
[2020-05-26] MEDS ORDERED: PANTOPRAZOLE SODIUM 40 MG TABLET.EC PO SCH (07:00)
== END 2020-05-25 13:55 | disposition home health service (06) | DRG 177 ==
LOC: SCU 13:00 → ER 13:00 → SCU 17:15
PROVIDERS: ADMIT Family Medicine; ATTEND Family Medicine
DX: E86.0 Dehydration; N30.10 Interstitial cystitis (chronic) without hematuria; R55 Syncope and collapse; I10 Essential (primary) hypertension; F41.9 Anxiety disorder, unspecified; M06.9 Rheumatoid arthritis, unspecified; E03.9 Hypothyroidism, unspecified; E11.9 Type 2 diabetes mellitus without complications; E78.5 Hyperlipidemia, unspecified; R00.0 Tachycardia, unspecified; R56.9 Unspecified convulsions; R07.9 Chest pain, unspecified; U07.1 COVID-19; J12.89 Other viral pneumonia